=== PATIENT | male | born 1960 | race African-American/Black ===

== ENCOUNTER 2016-03-31 10:26 | Emergency (ER) | payer BC, OTHER ==
--- NOTE | 2016-03-31 10:41 | ER Document Report ---
ED Medical Screen (RME) - General Stated Complaint: HEADACHE AND DIZZY Notes: 56 [facility]. + hx/o HTN, DM, A fib. pt has taken meds as prescribed. reports his avg blood pressure runs 170's/90' s. c/o dull frontal headache with dizziness. TRAVEL OUTSIDE OF THE [place] IN LAST 30 DAYS: No - Related Data Allergies/Adverse Reactions: No Known Allergies Allergy (Verified 06/12/15 15:38) Past Medical History - Past Medical History Cardiac Medical History: Reports: Hx Atrial Fibrillation, Hx Coronary Artery Disease, Hx Hypercholesterolemia, Hx Hypertension Pulmonary Medical History: Neurological Medical History: Endocrine Medical History: Reports: Hx Diabetes Mellitus Type 2 Renal/ Medical History: Malignancy Medical History: Reports Hx Renal (Kidney) Cancer GI Medical History: Musculoskeltal Medical History: Psychiatric Medical History: Infectious Medical History: Past Surgical History: Reports: Hx Abdominal Surgery, Hx Cardiac Catheterization , Hx Kidney (Renal Surgery) - left nephrectomy, kidney CA - Immunizations Hx Diphtheria, Pertussis, Tetanus Vaccination: Yes Physical Exam - Vital signs Vitals: Temp Pulse Resp BP Pulse Ox 98.0 F 86 20 193/97 H 97 03/31/16 10:36 03/31/16 10:36 03/31/16 10:36 03/31/16 10:36 03/31/16 10:36 Course - Vital Signs Vital signs: Temp Pulse Resp BP Pulse Ox 98.0 F 86 20 193/97 H 97 03/31/16 10:36 03/31/16 10:36 03/31/16 10:36 03/31/16 10:36 03/31/16 10:36
[2016-03-31 11:05] LABS: ABSOLUTE EOSINOPHILS # (AUTO) 0.2 10^3/uL (0.0-0.6); ABSOLUTE LYMPHOCYTES (AUTO) 1.9 10^3/uL (0.5-4.7); ABSOLUTE MONOCYTES (AUTO) 0.6 10^3/uL (0.1-1.4); ABSOLUTE NEUT (AUTO) 5.8 10^3/uL (1.7-8.2); BASOPHILS % (AUTO) 0.3 % (0-2); EOSINOPHILS % (AUTO) 2.7 % (0-6); HEMATOCRIT 32.6 % (37.9-51.0); HGB HCT DIFFERENCE 0.4; MEAN CORPUSCULAR HEMOGLOBIN 26.9 pg (27.0-33.4); MEAN CORPUSCULAR HGB CONC 33.7 g/dL (32.0-36.0); MEAN CORPUSCULAR VOLUME 80 fl (80-97); MONOCYTES % (AUTO) 7.5 % (3-13); RED BLOOD COUNT 4.08 10^6/uL (4.35-5.55); SEGMENTED NEUTROPHILS % (AUTO) 67.5 % (42-78); WHITE BLOOD COUNT 8.7 10^3/uL (4.0-10.5)
[2016-03-31 11:12] LABS: APPEARANCE,URINE CLEAR; BILIRUBIN,URINE NEGATIVE (NEGATIVE); GLUCOSE, URINE NEGATIVE (NEGATIVE); KETONES,URINE NEGATIVE (NEGATIVE); LEUKOCYTE ESTERASE,URINE NEGATIVE (NEGATIVE); NITRITE,URINE NEGATIVE (NEGATIVE); PROTEIN,URINE 100 mg/dL (NEGATIVE); URINE SPECIFIC GRAVITY 1.009; UROBILINOGEN,URINE NEGATIVE mg/dL (<2.0)
[2016-03-31 11:38] LABS: ALANINE AMINOTRANSFERASE 35 U/L (21-72); ALBUMIN 4.3 g/dL (3.5-5.0); ALKALINE PHOSPHATASE 59 U/L (38-126); ANION GAP 13 (5-19); ASPARTATE AMINO TRANSFERASE 32 U/L (17-59); BILIRUBIN,TOTAL 0.8 mg/dL (0.2-1.3); BLOOD UREA NITROGEN 17 mg/dL (7-20); CALCIUM 9.9 mg/dL (8.4-10.2); CARBON DIOXIDE 27 mmol/L (22-30); CHLORIDE 105 mmol/L (98-107); GLUCOSE 43 mg/dL (75-110); POTASSIUM 4.2 mmol/L (3.6-5.0); SODIUM 144.9 mmol/L (137-145)
[2016-03-31] MEDS ORDERED: MECLIZINE HCL 25 MG TABLET PO ONE (12:15)
[2016-03-31] MEDS ORDERED: NORMAL SALINE 1000 ML 1,000 ML IV ONE ×2 (14:14)
--- NOTE | 2016-03-31 15:38 | ER Document Report ---
ED General - General Chief Complaint: Headache Stated Complaint: HEADACHE AND DIZZY TRAVEL OUTSIDE OF THE [place] IN LAST 30 DAYS: No - HPI Patient complains to provider of: headache dizziness Notes: Age coming in for headache dizziness. Patient states he woke up this morning with symptoms. Patient states an appointment at the [facility] at that time they found the patient's blood pressure was elevated therefore came into the ER for further evaluation. Patient states he has a history of renal issues as a partial kidney on one side due to renal cancer states headache dull this causes some mild dizziness. Patient denies any fevers chills nausea vomiting diarrhea chest pain abdominal pain. Patient states he is not taking anything for his headache. - Related Data Allergies/Adverse Reactions: No Known Allergies Allergy (Verified 03/31/16 10:37) Past Medical History - Social History Smoking Status: Never Smoker Chew tobacco use (# tins/day): No Frequency of alcohol use: None Drug Abuse: None Family History: Reviewed & Not Pertinent Patient has suicidal ideation: No Patient has homicidal ideation: No - Past Medical History Cardiac Medical History: Reports: Hx Atrial Fibrillation, Hx Coronary Artery Disease, Hx Hypercholesterolemia, Hx Hypertension Pulmonary Medical History: Neurological Medical History: Endocrine Medical History: Reports: Hx Diabetes Mellitus Type 2 Renal/ Medical History: Denies: Hx Peritoneal Dialysis Malignancy Medical History: Reports Hx Renal (Kidney) Cancer GI Medical History: Musculoskeltal Medical History: Psychiatric Medical History: Infectious Medical History: Past Surgical History: Reports: Hx Abdominal Surgery, Hx Cardiac Catheterization , Hx Kidney (Renal Surgery) - left nephrectomy, kidney CA - Immunizations Hx Diphtheria, Pertussis, Tetanus Vaccination: Yes Hx Pneumococcal Vaccination: 12/26/10 Review of Systems - Review of Systems Constitutional: No symptoms reported EENT: No symptoms reported Cardiovascular: No symptoms reported Respiratory: No symptoms reported Gastrointestinal: No symptoms reported Genitourinary: No symptoms reported Male Genitourinary: No symptoms reported Musculoskeletal: No symptoms reported Skin: No symptoms reported Hematologic/Lymphatic: No symptoms reported Neurological/Psychological: Headaches, Other - Dizziness -: Yes All other systems reviewed and negative Physical Exam - Vital signs Vitals: Temp Pulse Resp BP Pulse Ox 98.0 F 86 20 193/97 H 97 03/31/16 10:36 03/31/16 10:36 03/31/16 10:36 03/31/16 10:36 03/31/16 10:36 Interpretation: Normal - General General appearance: Appears well, Alert - HEENT Head: Normocephalic, Atraumatic Eyes: Normal Conjunctiva: Normal Cornea: Normal Eyelashes: Normal Pupils: PERRL Neck: Normal - Respiratory Respiratory status: No respiratory distress Chest status: Nontender Breath sounds: Normal Chest palpation: Normal - Cardiovascular Rhythm: Regular Heart sounds: Normal auscultation Murmur: No - Abdominal Inspection: Normal Distension: No distension Bowel sounds: Normal Tenderness: Nontender Organomegaly: No organomegaly - Back Back: Normal, Nontender - Extremities General upper extremity: Normal inspection, Nontender, Normal color, Normal ROM , Normal temperature General lower extremity: Normal inspection, Nontender, Normal color, Normal ROM , Normal temperature, Normal weight bearing. No: Alfredo's sign - Neurological Neuro grossly intact: Yes Cognition: Normal Orientation: AAOx4 Nila Coma Scale Eye Opening: Spontaneous [place] Coma Scale Verbal: Oriented [place] Coma Scale Motor: Obeys Commands Nila Coma Scale Total: 15 Speech: Normal Motor strength normal: LUE, RUE, LLE, RLE Sensory: Normal - Psychological Associated symptoms: Normal affect, Normal mood - Skin Skin Temperature: Warm Skin Moisture: Dry Skin Color: Normal Course - Re-evaluation Re-evalutation: 03/31/16 15:37 Patient coming in for evaluation of headache and dizziness. Patient was given meclizine which did improve his symptoms. Patient did undergo a head CT is patient states never had one never had a headache like this before. Head CT did show some possible myelinating white matter disease. Discussed with radiologist recommended to get an MRI for further evaluation. Pravastatin evaluated patient no other neurological deficits did discuss with patient that there is any signs of stroke or ischemia they would not be a candidate for any thrombolic therapy as that he woke up with symptoms and the common has ran out. Patient states an understanding 03/31/16 16:42 - Vital Signs Vital signs: Temp Pulse Resp BP Pulse Ox 98.2 F 86 17 164/89 H 97 03/31/16 15:09 03/31/16 10:36 03/31/16 15:09 03/31/16 15:09 03/31/16 10:36 - Laboratory Result Diagrams: 03/31/16 10:49 03/31/16 10:49 Laboratory results interpreted by me: 0203/31/16 03/31/16 10:49 10:49 10:49 RBC 4.08 L Hgb 11.0 L Hct 32.6 L MCH 26.9 L RDW 16.0 H PT Creatinine 1.40 H Est GFR (Non-Af Amer) 52 L Glucose 43 L Urine Protein 100 H 03/31/16 10:49 RBC Hgb Hct MCH RDW PT 18.5 H Creatinine Est GFR (Non-Af Amer) Glucose Urine Protein Discharge - Discharge Clinical Impression: Headache Qualifiers: Headache type: unspecified Headache chronicity pattern: unspecified pattern Intractability: not intractable Qualified Code(s): R51 - Headache Hypertension Qualifiers: Hypertension type: essential hypertension Qualified Code(s): I10 - Essential ( primary) hypertension Condition: Good Disposition: HOME, SELF-CARE Instructions: Headache ([facility]) Additional Instructions: Please follow-up with your primary care physician for further evaluation of your blood pressure. Your head CT today shows some signs of white matter disease however the MRI confirm that this is chronic white matter disease more likely due to changes to the brain from having high blood pressure every years. We see no signs of stroke mass bleeding in the head or any other significant etiologies are pathology. Please take medication as prescribed for your headache. Please be sure she follow[facility]. Prescriptions: Butalb/Acetaminophen/Caffeine [Fioricet (50-325-40 mg) Tablet] 1 tab PO Q4HP PRN #30 tab PRN Reason: Forms: Elevated Blood Pressure
[2016-03-31 15:52] LABS: PROTHROMBIN TIME 18.5 SEC (11.4-15.4)
[2016-03-31 17:22] VITALS: BP 164/93
== END 2016-03-31 17:30 | disposition home or self-care (01) ==
LOC: ER 10:26
DX: R51 Headache (principal); R42 Dizziness and giddiness; I48.91 Unspecified atrial fibrillation; I25.10 Atherosclerotic heart disease of native coronary artery without angina pectoris; E78.00 Pure hypercholesterolemia, unspecified; I10 Essential (primary) hypertension; E11.9 Type 2 diabetes mellitus without complications; Z85.528 Personal history of other malignant neoplasm of kidney
CPT/HCPCS: 99284; 36415; 82962; 85025; 85610; 80053; 81001; 70553; 70450; A9577; J7030

== ENCOUNTER 2016-06-04 15:10 | Emergency (ER) | payer OTHER ==
--- NOTE | 2016-06-04 16:43 | ER Document Report ---
ED Medical Screen (RME) - General Chief Complaint: Dizziness Stated Complaint: DIZZINESS, DIFFICULTY BREATHING Notes: Patient says he's been feeling dizzy and some shortness of breath over the past week. He has some chest pain a few days ago, although he is not having any today. He noted his blood sugar was 57 at home this morning. He is an oral agent dependent diabetic. He says he feels sluggish. [facility] and [facility] come here to be evaluated. Patient denies any nausea or vomiting or diarrhea. Says he has a very slight headache. Denies any fever. PMH: Hypertension, NIDDM, hypercholesterolemia, atrial fibrillation. TRAVEL OUTSIDE OF THE [place] IN LAST 30 DAYS: No - Related Data Allergies/Adverse Reactions: No Known Allergies Allergy (Verified 06/04/16 15:15) Past Medical History - Past Medical History Cardiac Medical History: Reports: Hx Atrial Fibrillation, Hx Coronary Artery Disease, Hx Hypercholesterolemia, Hx Hypertension Pulmonary Medical History: Neurological Medical History: Endocrine Medical History: Reports: Hx Diabetes Mellitus Type 2 Renal/ Medical History: Denies: Hx Peritoneal Dialysis Malignancy Medical History: Reports Hx Renal (Kidney) Cancer GI Medical History: Musculoskeltal Medical History: Psychiatric Medical History: Infectious Medical History: Past Surgical History: Reports: Hx Abdominal Surgery, Hx Cardiac Catheterization , Hx Kidney (Renal Surgery) - left nephrectomy, kidney CA - Immunizations Hx Diphtheria, Pertussis, Tetanus Vaccination: Yes Physical Exam - Vital signs Vitals: Temp Pulse Resp BP Pulse Ox 98.5 F 59 L 16 138/64 H 97 06/04/16 15:16 06/04/16 15:16 06/04/16 15:16 06/04/16 15:16 06/04/16 15:16 Course - Vital Signs Vital signs: Temp Pulse Resp BP Pulse Ox 98.5 F 59 L 16 138/64 H 97 06/04/16 15:16 06/04/16 15:16 06/04/16 15:16 06/04/16 15:16 06/04/16 15:16
[2016-06-04 16:56] LABS: ABSOLUTE EOSINOPHILS # (AUTO) 0.3 10^3/uL (0.0-0.6); ABSOLUTE LYMPHOCYTES (AUTO) 1.6 10^3/uL (0.5-4.7); ABSOLUTE MONOCYTES (AUTO) 0.6 10^3/uL (0.1-1.4); ABSOLUTE NEUT (AUTO) 6.7 10^3/uL (1.7-8.2); BASOPHILS % (AUTO) 0.3 % (0-2); EOSINOPHILS % (AUTO) 2.8 % (0-6); HEMATOCRIT 32.1 % (37.9-51.0); HEMOGLOBIN 10.7 g/dL (13.5-17.0); LYMPHOCYTES % (AUTO) 17.9 % (13-45); MEAN CORPUSCULAR HEMOGLOBIN 26.6 pg (27.0-33.4); MEAN CORPUSCULAR HGB CONC 33.5 g/dL (32.0-36.0); MEAN CORPUSCULAR VOLUME 79 fl (80-97); MONOCYTES % (AUTO) 6.2 % (3-13); RED BLOOD COUNT 4.04 10^6/uL (4.35-5.55); RED CELL DISTRIBUTION WIDTH 16.5 % (11.5-14.0); SEGMENTED NEUTROPHILS % (AUTO) 72.8 % (42-78); WHITE BLOOD COUNT 9.2 10^3/uL (4.0-10.5)
[2016-06-04 17:21] LABS: CREATINE KINASE MB 0.49 ng/mL (<4.55)
[2016-06-04 17:23] LABS: TROPONIN I < 0.012 ng/mL
[2016-06-04 17:25] LABS: ALANINE AMINOTRANSFERASE 65 U/L (21-72); ALBUMIN 4.2 g/dL (3.5-5.0); ALKALINE PHOSPHATASE 47 U/L (38-126); ASPARTATE AMINO TRANSFERASE 28 U/L (17-59); BILIRUBIN,DIRECT 0.2 mg/dL (0.0-0.4); BILIRUBIN,TOTAL 0.5 mg/dL (0.2-1.3); BLOOD UREA NITROGEN 21 mg/dL (7-20); CALCIUM 9.5 mg/dL (8.4-10.2); CARBON DIOXIDE 27 mmol/L (22-30); CHLORIDE 105 mmol/L (98-107); CREATININE RESULT 1.62 mg/dL (0.52-1.25); GLUCOSE 214 mg/dL (75-110); POTASSIUM 4.3 mmol/L (3.6-5.0)
[2016-06-04 17:45] LABS: APPEARANCE,URINE SLIGHTLY-CLOUDY; BILIRUBIN,URINE NEGATIVE (NEGATIVE); GLUCOSE, URINE NEGATIVE (NEGATIVE); KETONES,URINE NEGATIVE (NEGATIVE); LEUKOCYTE ESTERASE,URINE NEGATIVE (NEGATIVE); NITRITE,URINE NEGATIVE (NEGATIVE); PROTEIN,URINE 100 mg/dL (NEGATIVE)
[2016-06-04 17:46] LABS: ANION GAP 13 (5-19); SODIUM 144.9 mmol/L (137-145)
--- NOTE | 2016-06-04 18:54 | ER Document Report ---
ED General - General Chief Complaint: Dizziness Stated Complaint: DIZZINESS, DIFFICULTY BREATHING Notes: Patient is a 56-year-old male past medical history of hypertension, hyperlipidemia, [id number] diabetes and a prior history of atrial fibrillation who presents with 2 weeks of intermittent shortness of breath, lightheadedness, and intermittent chest pain. He denies any of these symptoms at the time my evaluation. He was seen in the [facility] today for the same started to come to the emergency department for further evaluation. Patient states he's had similar symptoms in the past that have been evaluated both at stress test and a cardiac catheterization approximately one year ago. These tests were noted to be normal. He states his been taking all medications as directed. Feels that symptoms are often associated when his glucose as noted below. He has not noted that it seems to improve or worsen the symptoms and that when they are present they do resolve spontaneously after approximately 30 seconds to 1 minute. Denies any focal weakness or numbness. Although in triage he did complain of a mild, dull, constant headache in association with his initial presentation he denies this complaint to me. A CT of the head was obtained in triage. TRAVEL OUTSIDE OF THE [place] IN LAST 30 DAYS: No - Related Data Allergies/Adverse Reactions: No Known Allergies Allergy (Verified 06/04/16 15:15) Past Medical History - General Information source: Patient - Social History Smoking Status: Never Smoker Frequency of alcohol use: None Drug Abuse: None Lives with: Spouse/Significant other Family History: Reviewed & Not Pertinent Patient has suicidal ideation: No Patient has homicidal ideation: No - Past Medical History Cardiac Medical History: Reports: Hx Atrial Fibrillation, Hx Coronary Artery Disease, Hx Hypercholesterolemia, Hx Hypertension Pulmonary Medical History: Neurological Medical History: Endocrine Medical History: Reports: Hx Diabetes Mellitus Type 2 Renal/ Medical History: Denies: Hx Peritoneal Dialysis Malignancy Medical History: Reports Hx Renal (Kidney) Cancer GI Medical History: Musculoskeltal Medical History: Psychiatric Medical History: Infectious Medical History: Past Surgical History: Reports: Hx Abdominal Surgery, Hx Cardiac Catheterization , Hx Kidney (Renal Surgery) - left nephrectomy, kidney CA - Immunizations Hx Diphtheria, Pertussis, Tetanus Vaccination: Yes Hx Pneumococcal Vaccination: 12/26/10 Review of Systems - Review of Systems Notes: Constitutional: Negative for fever. HENT: Negative for sore throat. Eyes: Negative for visual changes. Cardiovascular: Negative for chest pain. Respiratory: Positive for shortness of breath. Gastrointestinal: Negative for abdominal pain, vomiting or diarrhea. Genitourinary: Negative for dysuria. Musculoskeletal: Negative for back pain. Skin: Negative for rash. Neurological: Negative for headaches, weakness or numbness. 10 point ROS negative except as marked above and in HPI. Physical Exam - Vital signs Vitals: Temp Pulse Resp BP Pulse Ox 98.5 F 59 L 16 138/64 H 97 06/04/16 15:16 06/04/16 15:16 06/04/16 15:16 06/04/16 15:16 06/04/16 15:16 Interpretation: Normal Notes: PHYSICAL EXAMINATION: GENERAL: Well-appearing, well-nourished and in no acute distress. HEAD: Atraumatic, normocephalic. EYES: Pupils equal round and reactive to light, extraocular movements intact, sclera anicteric, conjunctiva are normal. ENT: nares patent, oropharynx clear without exudates. Moist mucous membranes. NECK: Normal range of motion, supple without lymphadenopathy LUNGS: Breath sounds clear to auscultation bilaterally and equal. No wheezes rales or rhonchi. HEART: Regular rate and rhythm without murmurs ABDOMEN: Soft, nontender, normoactive bowel sounds. No guarding, no rebound. No masses appreciated. EXTREMITIES: Normal range of motion, no pitting or edema. No cyanosis. NEUROLOGICAL: Face symmetric. Tongue protrudes midline. Extraocular motions intact. Pupils are 2 mm and equally reactive. Normal speech, normal gait. 5 out of 5 strength in both the distal and proximal upper and lower extremities bilaterally. Sensation is grossly intact throughout. Finger to nose testing normal. Pronator drift normal. PSYCH: Normal mood, normal affect. SKIN: Warm, Dry, normal turgor, no rashes or lesions noted. Course - Re-evaluation Re-evalutation: 06/04/16 18:50 Patient presents with intermittent breath and lightheadedness for the past 2 weeks unchanged today. He states it is also intermittently had some associated chest discomfort with these episodes. At the time of my evaluation patient denies any symptoms or complaints. Evaluation in triage including a CT of the head, EKG, and laboratories are unremarkable and unchanged from prior. Initial troponin is unremarkable and a repeat will be obtained. PrLow clinical suspicion for ACS given clinical history, exam, EKG without ST elevations or depressions, and negative initial troponin. Patient does have T wave inversions in the lateral leads which are unchanged from prior. PE also seems unlikely given clinical history, absence of tachycardia or dyspnea. Wells score is 0. CXR without evidence of pneumothorax or pneumonia. No widened mediastinum. Aortic dissection also seems unlikely given history, symmetric pulses, CXR, and vitals. Anticipate that the repeat troponin will remain negative. I have offered hospitalization for inpatient stress testing the patient versus close outpatient follow-up with his take off worker for repeat outpatient stress test within the next 3 days with consideration of elective cardiac catheterization as his symptoms are somewhat concerning for possible anginal events. Patient is elected to follow closely as an outpatient.At this time will discharge with return precautions and follow-up recommendations. Verbal discharge instructions given a the bedside and opportunity for questions given. Medication warnings reviewed. Patient is in agreement with this plan and has verbalized understanding of return precautions and the need for primary care follow-up in the next 24-72 hours. - Vital Signs Vital signs: Temp Pulse Resp BP Pulse Ox 98.5 F 65 16 171/85 H 97 06/04/16 15:16 06/04/16 20:46 06/04/16 20:46 06/04/16 20:46 06/04/16 20:46 - Laboratory Result Diagrams: 06/04/16 16:40 06/04/16 16:40 Laboratory results interpreted by me: 06/04/16 06/04/16 06/04/16 16:40 16:40 16:40 RBC 4.04 L Hgb 10.7 L Hct 32.1 L MCV 79 L MCH 26.6 L RDW 16.5 H BUN 21 H Creatinine 1.62 H Est GFR ( Amer) 53 L Est GFR (Non-Af Amer) 44 L Glucose 214 H Urine Protein 100 H Urine Urobilinogen 2.0 H Urine Ascorbic Acid 40 H - Diagnostic Test Radiology reviewed: Image reviewed, Reports reviewed Radiology results interpreted by me: 06/04/16 18:53 Chest x-ray: No widened mediastinum or pneumothorax - EKG Interpretation by Me Additional EKG results interpreted by me: 06/04/16 18:53 Normal sinus rhythm. Rate 65. No ST elevations or depressions. QTC is 412. Discharge - Discharge Clinical Impression: Dizziness Hypertension Qualifiers: Hypertension type: essential hypertension Qualified Code(s): I10 - Essential ( primary) hypertension Condition: Good Disposition: HOME, SELF-CARE Additional Instructions: Please follow-up with your outpatient take off worker the next several days for consideration of a stress test or cardiac catheterization. Return if you develop recurrent chest pain, vomiting, sweating, shortness of breath, or any other symptoms that are worrisome to you. Your evaluation here today as normal but you do require further workup for the cause of your symptoms.
[2016-06-04 20:46] VITALS: BP 171/85
--- NOTE | 2016-06-04 22:32 | EKG REPORT ---
SEVERITY:- ABNORMAL ECG - SINUS RHYTHM MULTIPLE ATRIAL PREMATURE COMPLEXES NONSPECIFIC T ABNORMALITIES, LATERAL LEADS : Confirmed by: Divine Junior MD 04-Jun-2016 22:30:24
== END 2016-06-04 20:46 | disposition home or self-care (01) ==
LOC: ER 15:10
DX: R42 Dizziness and giddiness (principal); I10 Essential (primary) hypertension; R06.00 Dyspnea, unspecified; E78.5 Hyperlipidemia, unspecified; I48.91 Unspecified atrial fibrillation; E11.9 Type 2 diabetes mellitus without complications; Z85.528 Personal history of other malignant neoplasm of kidney; Z90.5 Acquired absence of kidney
CPT/HCPCS: 36415; 70450; 71020; 80053; 81001; 82553; 84484; 85025; 93005; 93010; 99285

== ENCOUNTER 2016-10-13 16:48 | Emergency (ER) | payer OTHER ==
[2016-10-13] MEDS ORDERED: NORMAL SALINE 1000 ML 1,000 ML IV PRN (17:02)
--- NOTE | 2016-10-13 17:05 | ER Document Report ---
ED Medical Screen (RME) - General Chief Complaint: High Blood Sugar Stated Complaint: LIGHTHEADED,ELEVATED SUGAR Time Seen by Provider: 10/13/16 16:59 Mode of Arrival: Ambulatory Information source: Patient TRAVEL OUTSIDE OF THE [place] IN LAST 30 DAYS: No - HPI Patient complains to provider of: Elevated blood sugar Onset: Just prior to arrival Notes: 10/13/16 17:04 Patient is a 56-year-old male with a history of type II but diabetes who presents to the emergency room complaining of elevated blood sugar with a high reading at home, he was recently switched to insulin from metformin approximately 1 week ago, denies any concerning symptoms at this time - Related Data Allergies/Adverse Reactions: No Known Allergies Allergy (Verified 10/13/16 16:57) Past Medical History - Past Medical History Cardiac Medical History: Reports: Hx Atrial Fibrillation, Hx Coronary Artery Disease, Hx Hypercholesterolemia, Hx Hypertension Pulmonary Medical History: Neurological Medical History: Endocrine Medical History: Reports: Hx Diabetes Mellitus Type 2 Renal/ Medical History: Denies: Hx Peritoneal Dialysis Malignancy Medical History: Reports Hx Renal (Kidney) Cancer GI Medical History: Musculoskeltal Medical History: Psychiatric Medical History: Infectious Medical History: Past Surgical History: Reports: Hx Abdominal Surgery, Hx Cardiac Catheterization , Hx Kidney (Renal Surgery) - left nephrectomy, kidney CA - Immunizations Hx Diphtheria, Pertussis, Tetanus Vaccination: Yes Physical Exam - Vital signs Vitals: Temp Pulse Resp BP Pulse Ox 99.1 F 66 18 162/82 H 96 10/13/16 16:50 10/13/16 16:50 10/13/16 16:50 10/13/16 16:50 10/13/16 16:50 Course - Vital Signs Vital signs: Temp Pulse Resp BP Pulse Ox 99.1 F 66 18 162/82 H 96 10/13/16 16:50 10/13/16 16:50 10/13/16 16:50 10/13/16 16:50 10/13/16 16:50
--- NOTE | 2016-10-13 18:21 | ER Document Report ---
ED Blood Sugar Problem - General Chief Complaint: High Blood Sugar Stated Complaint: LIGHTHEADED,ELEVATED SUGAR Time Seen by Provider: 10/13/16 16:59 Mode of Arrival: Ambulatory Notes: Patient says his blood sugars been running high. He has been on metformin for about 5 or 6 years until about a week ago when it was decided that he needed to be on insulin. He was started on Lantus 10 units at nighttime a couple of weeks ago, but no oral agent and no sliding scale insulin during the day. His Lantus has been increased by 2 units every few days and is now up to 22 units at bedtime. His blood sugars to continue to run high, mostly in the 300s. Says he feels weak and thirsty. Denies any nausea or vomiting or diarrhea. No cough or cold or chest congestion. No fevers. TRAVEL OUTSIDE OF THE [place] IN LAST 30 DAYS: No - Related Data Allergies/Adverse Reactions: No Known Allergies Allergy (Verified 10/13/16 16:57) Past Medical History - General Information source: Patient - Social History Smoking Status: Former Smoker Chew tobacco use (# tins/day): No Frequency of alcohol use: None Drug Abuse: None Family History: Reviewed & Not Pertinent - Past Medical History Cardiac Medical History: Reports: Hx Atrial Fibrillation - Sounds like patient had ablation therapy 2 years ago, Hx Coronary Artery Disease, Hx Hypercholesterolemia, Hx Hypertension Pulmonary Medical History: Neurological Medical History: Endocrine Medical History: Reports: Hx Diabetes Mellitus Type 2 Renal/ Medical History: Reports: Hx Benign Prostatic Hyperplasia Malignancy Medical History: Reports Hx Renal (Kidney) Cancer - Surgery removing most of 1 of his kidneys. GI Medical History: Musculoskeltal Medical History: Psychiatric Medical History: Infectious Medical History: Past Surgical History: Reports: Hx Abdominal Surgery, Hx Cardiac Catheterization , Hx Kidney (Renal Surgery) - left nephrectomy, kidney CA - Immunizations Hx Diphtheria, Pertussis, Tetanus Vaccination: Yes Hx Pneumococcal Vaccination: 12/26/10 Review of Systems - Review of Systems Notes: REVIEW OF SYSTEMS: CONSTITUTIONAL : Denies fever. Feels weak at times. EENT: Denies eye, ear, nose or mouth or throat pain or other symptoms. CARDIOVASCULAR: Denies chest pain. RESPIRATORY: Denies cough, chest congestion, or shortness of breath. GASTROINTESTINAL: Denies abdominal pain or nausea, vomiting, or diarrhea. GENITOURINARY: Denies difficulty or painful urinating, urinary frequency, blood in urine. MUSCULOSKELETAL: Denies back or neck pain. Denies joint pain or swelling. SKIN: Denies rash or skin lesions. NEUROLOGICAL: Denies LOC or altered mental status. Denies headache. Denies sensory loss or motor deficits. ALL OTHER SYSTEMS REVIEWED AND NEGATIVE. Physical Exam - Vital signs Vitals: Temp Pulse Resp BP Pulse Ox 99.1 F 66 18 162/82 H 96 10/13/16 16:50 10/13/16 16:50 10/13/16 16:50 10/13/16 16:50 10/13/16 16:50 Interpretation: Hypertensive - Mild - Notes Notes: PHYSICAL EXAMINATION: GENERAL: Well-appearing, in no acute distress. Blood pressure 162/82. HEAD: Atraumatic, normocephalic. NECK: Normal range of motion, supple. LUNGS: Breath sounds clear and equal bilaterally. HEART: Regular rate and rhythm without murmurs. ABDOMEN: Soft, nontender. No guarding or rebound. BACK: No tenderness throughout entire back. EXTREMITIES: Normal range of motion without pain. NEUROLOGICAL: Normal speech, normal gait. Normal sensory, motor, and reflex exams. Awake, alert, and oriented x3. Cranial nerves normal. PSYCH: Normal mood, normal affect. SKIN: Warm, dry, no rashes. Course - Re-evaluation Re-evalutation: 10/13/16 19:51 Patient's Accu-Chek is 367 now. Patient needs to be on sliding scale during the day. [facility] I have told him he needs to talk to them about getting on more insulin. - Vital Signs Vital signs: Temp Pulse Resp BP Pulse Ox 99.1 F 66 18 162/82 H 96 10/13/16 16:50 10/13/16 16:50 10/13/16 16:50 10/13/16 16:50 10/13/16 16:50 - Laboratory Result Diagrams: 10/13/16 17:50 10/13/16 17:50 Laboratory results interpreted by me: 10/13/16 10/13/16 10/13/16 17:50 17:50 17:50 Hgb 11.6 L Hct 34.6 L MCV 79 L MCH 26.6 L RDW 15.8 H Sodium 135.7 L BUN 23 H Creatinine 1.53 H Est GFR ( Amer) 57 L Est GFR (Non-Af Amer) 47 L Glucose 519 H* Serum Osmolality 308 H Urine Protein Urine Glucose (UA) 10/13/16 17:50 Hgb Hct MCV MCH RDW Sodium BUN Creatinine Est GFR ( Amer) Est GFR (Non-Af Amer) Glucose Serum Osmolality Urine Protein 30 H Urine Glucose (UA) >=500 H Discharge - Discharge Clinical Impression: Hyperglycemia Condition: Stable Disposition: HOME, SELF-CARE Additional Instructions: HYPERGLYCEMIA (HIGH BLOOD SUGAR): You have an abnormally high blood sugar. Not all high blood sugar requires long-term treatment. High blood sugar can be due to medications, , or the stress of illness. (These cases are "borderline diabetes.") If the doctor feels your high blood sugar might resolve with time, you may not require treatment now. It's very important that you follow through, to see if the blood sugar returns to normal levels. Uncontrolled high blood sugar leads to early heart disease, strokes, nerve damage, eye damage, and kidney damage. Call the physician if there is faintness, excess sleepiness, or very rapid breathing. DIABETES: You have an abnormally high blood sugar, suspicious for diabetes. Not all high blood sugar requires long-term treatment. High blood sugar can be due to medications, , or the stress of illness. (These cases are "borderline diabetes.") If the doctor feels your high blood sugar might get better with time, you may not require treatment now. It's very important that you follow through. Uncontrolled high blood sugar leads to early heart disease, strokes, nerve damage, eye damage, and kidney damage. All diabetics should follow a diet designed to control the blood sugar. Overweight diabetics should exercise regularly and lose weight. If this is not sufficient to control the blood sugar, pills or insulin shots are necessary. Younger people who develop diabetes almost always require insulin daily. Home testing of blood sugars or urine sugar is required. Diabetic teaching is available to help you figure insulin doses and monitor the blood sugar. Call the physician if there is faintness, excess sleepiness, or very rapid breathing. If hypoglycemia (LOW blood sugar) develops, symptoms are shakiness, weakness, sweating, and confusion. In this case, you should eat or drink something with sugar at once. INSULIN: Insulin is a natural hormone that lowers blood sugar. Normal blood sugar prevents complications of diabetes. For most diabetics, insulin is the best way to treat the illness. Be sure you know how to measure the insulin correctly. Insulin is measured in "units." There are three types of insulin: N (NPH or long acting), R (regular or short acting), and L (Lente or very long acting). Be sure you are using the right amount of each type. Insulin must be injected into the fat. You can use the abdomen, upper arms , and thighs. Select a different injection site every time. Wipe the site with alcohol before injecting. When first starting insulin, some adjusting of the insulin dose is necessary. Keep a record of each insulin dose and time of injection, and of the blood sugar and the time you test it. Sometimes insulin can make the blood sugar too low. If you become dizzy, sweaty, shaky, or confused, you may be having a hypoglycemic episode. Immediately use juice or some other sweet food. Call the doctor if the symptoms don't go away. Keep your appointment to be [facility]. It appears that you are going to need to be on insulin more often than just a bedtime dose. Take your planned 24 units tonight and keep your appointment at the [facility] tomorrow. FOLLOW-UP CARE: If you have been referred to a physician for follow-up care, call the physician s office for an appointment as you were instructed or within the next two days. If you experience worsening or a significant change in your symptoms, notify the physician immediately or return to the Emergency Department at any time for re-evaluation. Forms: Return to Work
[2016-10-13 18:27] LABS: ABSOLUTE EOSINOPHILS # (AUTO) 0.1 10^3/uL (0.0-0.6); ABSOLUTE LYMPHOCYTES (AUTO) 1.7 10^3/uL (0.5-4.7); ABSOLUTE MONOCYTES (AUTO) 0.5 10^3/uL (0.1-1.4); BASOPHILS % (AUTO) 0.5 % (0-2); EOSINOPHILS % (AUTO) 1.8 % (0-6); HEMATOCRIT 34.6 % (37.9-51.0); HEMOGLOBIN 11.6 g/dL (13.5-17.0); HGB HCT DIFFERENCE 0.2; LYMPHOCYTES % (AUTO) 23.3 % (13-45); MEAN CORPUSCULAR HEMOGLOBIN 26.6 pg (27.0-33.4); MEAN CORPUSCULAR HGB CONC 33.6 g/dL (32.0-36.0); MEAN CORPUSCULAR VOLUME 79 fl (80-97); MONOCYTES % (AUTO) 6.7 % (3-13); RED BLOOD COUNT 4.36 10^6/uL (4.35-5.55); RED CELL DISTRIBUTION WIDTH 15.8 % (11.5-14.0); SEGMENTED NEUTROPHILS % (AUTO) 67.7 % (42-78); VENOUS BLOOD BASE EXCESS -0.5 mmol/L; VENOUS BLOOD HCO3 24.9 mmol/L (20-32); VENOUS BLOOD PCO2 43.4 mmHg (35-63); VENOUS BLOOD PH 7.38 (7.30-7.42); WHITE BLOOD COUNT 7.4 10^3/uL (4.0-10.5)
[2016-10-13 18:30] LABS: APPEARANCE,URINE CLEAR; BILIRUBIN,URINE NEGATIVE (NEGATIVE); GLUCOSE, URINE >=500 mg/dL (NEGATIVE); KETONES,URINE NEGATIVE (NEGATIVE); LEUKOCYTE ESTERASE,URINE NEGATIVE (NEGATIVE); NITRITE,URINE NEGATIVE (NEGATIVE); PROTEIN,URINE 30 mg/dL (NEGATIVE); URINE SPECIFIC GRAVITY 1.025; UROBILINOGEN,URINE NEGATIVE mg/dL (<2.0)
[2016-10-13] MEDS ORDERED: NORMAL SALINE 1000 ML 1,000 ML IV ONE (18:36)
[2016-10-13 18:49] LABS: ALANINE AMINOTRANSFERASE 39 U/L (21-72); ALKALINE PHOSPHATASE 79 U/L (38-126); ANION GAP 10 (5-19); ASPARTATE AMINO TRANSFERASE 20 U/L (17-59); BILIRUBIN,DIRECT 0.4 mg/dL (0.0-0.4); BILIRUBIN,TOTAL 0.6 mg/dL (0.2-1.3); BLOOD UREA NITROGEN 23 mg/dL (7-20); CALCIUM 9.4 mg/dL (8.4-10.2); CARBON DIOXIDE 25 mmol/L (22-30); CHLORIDE 101 mmol/L (98-107); CREATININE RESULT 1.53 mg/dL (0.52-1.25); POTASSIUM 4.7 mmol/L (3.6-5.0); SODIUM 135.7 mmol/L (137-145); TOTAL PROTEIN 7.6 g/dL (6.3-8.2)
[2016-10-13 18:57] LABS: GLUCOSE 519 mg/dL (75-110)
[2016-10-13] MEDS ORDERED: INSULIN LISPRO 100 UNIT/ML 3 ML VIAL SUBCUT ONE (18:59)
[2016-10-13 20:32] VITALS: BP 155/83
== END 2016-10-13 20:29 | disposition home or self-care (01) ==
LOC: ER 16:48
DX: E11.65 Type 2 diabetes mellitus with hyperglycemia (principal); Z79.4 Long term (current) use of insulin
CPT/HCPCS: 99283; 96360; 36415; 82962; 83930; 85025; 80053; 81001; 82803; J1815; J7030

== ENCOUNTER 2017-01-10 04:09 | Emergency (ER) | payer OTHER ==
--- NOTE | 2017-01-10 05:04 | ER Document Report ---
ED General - General Chief Complaint: Blood Pressure Problem Stated Complaint: BLOOD PRESSURE PROBLEM Time Seen by Provider: 01/10/17 04:50 Mode of Arrival: Ambulatory Information source: Patient Notes: Patient states that he woke up at 3 AM this morning with left arm numbness. Patient states the numbness has almost completely resolved although he does still have tingling to the tips of his fingers of his left hand. Patient denies any chest pain or shortness of breath. Patient denies any cough, nausea , vomiting or diarrhea. Patient states that he has had episodes of left upper extremity numbness off and on about every 3 months. Patient does report some mild headache pain that he developed after waking up. Patient states he lives alone and because of this he likes to make sure that he is okay. TRAVEL OUTSIDE OF THE [place] IN LAST 30 DAYS: No - HPI Onset: This morning Onset/Duration: Sudden, Better Quality of pain: Achy Pain Level: 2 Associated symptoms: Headache, Other - Left arm numbness. denies: Chest pain, Nonproductive cough, Productive cough, Diarrhea, Fever, Nausea, Vomiting, Shortness of breath Exacerbated by: Denies Relieved by: Denies Similar symptoms previously: Yes Recently seen / treated by doctor: No - Related Data Allergies/Adverse Reactions: No Known Allergies Allergy (Verified 10/13/16 16:57) Past Medical History - General Information source: Patient - Social History Smoking Status: Never Smoker Frequency of alcohol use: None Drug Abuse: None Occupation: None Lives with: Alone Family History: Reviewed & Not Pertinent Patient has suicidal ideation: No Patient has homicidal ideation: No - Past Medical History Cardiac Medical History: Reports: Hx Atrial Fibrillation - Sounds like patient had ablation therapy 2 years ago, Hx Coronary Artery Disease, Hx Hypercholesterolemia, Hx Hypertension Pulmonary Medical History: Neurological Medical History: Endocrine Medical History: Reports: Hx Diabetes Mellitus Type 2 Renal/ Medical History: Reports: Hx Benign Prostatic Hyperplasia. Denies: Hx Peritoneal Dialysis Malignancy Medical History: Reports Hx Renal (Kidney) Cancer - Surgery removing most of 1 of his kidneys. GI Medical History: Musculoskeltal Medical History: Psychiatric Medical History: Infectious Medical History: Past Surgical History: Reports: Hx Abdominal Surgery, Hx Cardiac Catheterization , Hx Kidney (Renal Surgery) - left nephrectomy, kidney CA - Immunizations Hx Diphtheria, Pertussis, Tetanus Vaccination: Yes Hx Pneumococcal Vaccination: 10/29/11 Review of Systems - Review of Systems Constitutional: No symptoms reported. denies: Fever, Recent illness EENT: No symptoms reported Cardiovascular: No symptoms reported. denies: Chest pain, Palpitations Respiratory: No symptoms reported. denies: Cough, Short of breath Gastrointestinal: No symptoms reported. denies: Abdominal pain, Diarrhea, Nausea, Vomiting Genitourinary: No symptoms reported Male Genitourinary: No symptoms reported Musculoskeletal: No symptoms reported. denies: Back pain Skin: No symptoms reported Hematologic/Lymphatic: No symptoms reported Neurological/Psychological: Headaches, Numbness, Tingling - fingertips of left hand Physical Exam - Vital signs Vitals: Temp Pulse Resp BP Pulse Ox 97.9 F 64 18 187/97 H 98 01/10/17 04:18 01/10/17 04:18 01/10/17 04:18 01/10/17 04:18 01/10/17 04:18 - General General appearance: Appears well, Alert In distress: None - HEENT Head: Normocephalic, Atraumatic Eyes: Normal Conjunctiva: Normal Nasal: Normal Mouth/Lips: Normal Mucous membranes: Normal Neck: Normal, Supple. No: Lymphadenopathy, Meningismus - Respiratory Respiratory status: No respiratory distress Chest status: Nontender Breath sounds: Normal. No: Rales, Rhonchi, Stridor, Wheezing Chest palpation: Normal - Cardiovascular Rhythm: Regular Heart sounds: S1 appreciated, S2 appreciated Murmur: No Pulses: Normal: Radial Normal capillary refill: Yes - Abdominal Inspection: Normal Distension: No distension Bowel sounds: Normal - Back Back: Normal, Nontender. No: CVA tenderness, Vertebra tenderness - Extremities General upper extremity: Normal inspection, Nontender, Normal ROM General lower extremity: Normal inspection, Nontender, Normal ROM - Neurological Neuro grossly intact: Yes Cognition: Normal Nila Coma Scale Eye Opening: Spontaneous Nila Coma Scale Verbal: Oriented Nila Coma Scale Motor: Obeys Commands Nila Coma Scale Total: 15 Speech: Normal Cranial nerves: Normal. No: Facial palsy, Tongue deviation Motor strength normal: LUE, RUE, LLE, RLE Additional motor exam normals: Equal air intelligence officer. No: Weakness - Psychological Associated symptoms: Normal affect, Normal mood - Skin Skin Temperature: Warm Skin Moisture: Dry Skin Color: Normal Course - Re-evaluation Re-evalutation: 01/10/17 06:45 Patient states that headache symptoms have resolved as well as his left arm numbness. Patient does complain of continued tingling to the fingertips of his left hand. Patient states that he will typically take his blood pressure medication in the morning and has not yet had it today. Patient states that he does have a neurology appointment tomorrow to follow-up the numbness sensation that he has been having off and on his left arm. Patient continues to deny any chest pain, shortness of breath or dizziness. Discussed patient's renal function tests with him. Patient does have a known history of renal insufficiency and is followed by Dr. Mitchell. Discussed patient's chest x-ray finding with him. Reviewed patient's previous chest x-ray, no significant change as compared to his previous. Discussed worsening symptoms that patient should return to me before. Patient verbalized understanding and agrees with plan of care. Consulted with Dr. Dorado regarding patient presentation and diagnostic test results. Agrees with discharge plan of care. - Vital Signs Vital signs: Temp Pulse Resp BP Pulse Ox 97.9 F 64 20 174/102 H 97 01/10/17 04:18 01/10/17 04:18 01/10/17 04:40 01/10/17 04:40 01/10/17 04:40 - Laboratory Result Diagrams: 01/10/17 05:16 01/10/17 05:16 Laboratory results interpreted by me: 01/10/17 01/10/17 05:16 05:16 RBC 4.20 L Hgb 11.0 L Hct 32.3 L MCV 77 L MCH 26.1 L RDW 16.8 H Sodium 146.5 H BUN 25 H Creatinine 1.67 H Est GFR ( Amer) 52 L Est GFR (Non-Af Amer) 43 L Glucose 111 H Labs- Entire Visit 01/10/17 01/10/17 01/10/17 05:16 05:16 05:16 WBC 8.5 RBC 4.20 L Hgb 11.0 L Hct 32.3 L MCV 77 L MCH 26.1 L MCHC 34.0 RDW 16.8 H Plt Count 178 Seg Neutrophils % 65.8 Lymphocytes % 22.9 Monocytes % 8.5 Eosinophils % 2.4 Basophils % 0.4 Absolute Neutrophils 5.6 Absolute Lymphocytes 1.9 Absolute Monocytes 0.7 Absolute Eosinophils 0.2 Absolute Basophils 0.0 Sodium 146.5 H Potassium 4.0 Chloride 107 Carbon Dioxide 27 Anion Gap 13 BUN 25 H Creatinine 1.67 H Est GFR ( Amer) 52 L Est GFR (Non-Af Amer) 43 L Glucose 111 H Calcium 8.9 Magnesium 1.8 Total Bilirubin 0.9 Direct Bilirubin 0.3 Indirect Bilirubin Not Reportable Neonat Total Bilirubin Not Reportable AST 28 ALT 62 Alkaline Phosphatase 58 Creatine Kinase 87 CK-MB (CK-2) 0.70 Troponin I < 0.012 Total Protein 7.1 Albumin 4.0 - Diagnostic Test Radiology reviewed: Image reviewed, Reports reviewed Discharge - Discharge Clinical Impression: Paresthesia, Hx of essential hypertension Head ache Qualifiers: Headache type: unspecified Headache chronicity pattern: unspecified pattern Intractability: not intractable Qualified Code(s): R51 - Headache Condition: Stable Disposition: HOME, SELF-CARE Instructions: Headache ([facility]), Numbness or Paresthesia ([facility]) Additional Instructions: Return immediately for any new or worsening symptoms Followup with your primary care provider, call tomorrow to make a followup appointment Follow-up with neurologist tomorrow as planned. Your blood pressure was elevated today. Patient to take your blood pressure medication this morning whenever you get home. Follow-up with your hardness tester for recheck Forms: Elevated Blood Pressure Referrals: Lila MITCHELL MD [ACTIVE STAFF] - Follow up as needed [facility] [place] [Provider Group] - Follow up tomorrow
[2017-01-10 05:28] LABS: ABSOLUTE EOSINOPHILS # (AUTO) 0.2 10^3/uL (0.0-0.6); ABSOLUTE LYMPHOCYTES (AUTO) 1.9 10^3/uL (0.5-4.7); ABSOLUTE MONOCYTES (AUTO) 0.7 10^3/uL (0.1-1.4); ABSOLUTE NEUT (AUTO) 5.6 10^3/uL (1.7-8.2); BASOPHILS % (AUTO) 0.4 % (0-2); EOSINOPHILS % (AUTO) 2.4 % (0-6); HEMATOCRIT 32.3 % (37.9-51.0); HGB HCT DIFFERENCE 0.7; LYMPHOCYTES % (AUTO) 22.9 % (13-45); MEAN CORPUSCULAR HEMOGLOBIN 26.1 pg (27.0-33.4); MEAN CORPUSCULAR VOLUME 77 fl (80-97); MONOCYTES % (AUTO) 8.5 % (3-13); RED CELL DISTRIBUTION WIDTH 16.8 % (11.5-14.0); SEGMENTED NEUTROPHILS % (AUTO) 65.8 % (42-78); WHITE BLOOD COUNT 8.5 10^3/uL (4.0-10.5)
[2017-01-10 05:46] LABS: ALANINE AMINOTRANSFERASE 62 U/L (21-72); ALKALINE PHOSPHATASE 58 U/L (38-126); ANION GAP 13 (5-19); ASPARTATE AMINO TRANSFERASE 28 U/L (17-59); BILIRUBIN,DIRECT 0.3 mg/dL (0.0-0.4); BILIRUBIN,TOTAL 0.9 mg/dL (0.2-1.3); BLOOD UREA NITROGEN 25 mg/dL (7-20); CALCIUM 8.9 mg/dL (8.4-10.2); CARBON DIOXIDE 27 mmol/L (22-30); CHLORIDE 107 mmol/L (98-107); CREATINE KINASE 87 U/L (55-170); CREATININE RESULT 1.67 mg/dL (0.52-1.25); GLUCOSE 111 mg/dL (75-110); MAGNESIUM 1.8 mg/dL (1.6-2.3); SODIUM 146.5 mmol/L (137-145); TOTAL PROTEIN 7.1 g/dL (6.3-8.2)
[2017-01-10 06:07] LABS: TROPONIN I < 0.012 ng/mL
--- NOTE | 2017-01-10 06:19 | RADIOLOGY REPORT (SQ) ---
EXAM DESCRIPTION: CT HEAD WITHOUT COMPLETED DATE/TIME: 01/10/2017 6:07 am REASON FOR STUDY: LEWIS, elevated bp, L arm numbness COMPARISON: CT head 06/04/2016, 03/31/2016. TECHNIQUE: Axial images acquired through the brain without intravenous contrast. Images reviewed wi th bone, brain and subdural windows. Images stored on PACS. All CT scanners at this facility use dose modulation, iterative reconstruction, and/or weight based d osing when appropriate to reduce radiation dose to as low as reasonably achievable (ALARA). [facility]: Dose Right [facility]: CareDose [facility]: Dose Right [facility]: Teradose 4D [facility]: [employer] RADIATION DOSE: Up-to-date CT equipment and radiation dose reduction techniques were employed. CTDIv ol: 64.6 mGy. DLP: 1163 mGy-cm. mGy. LIMITATIONS: None. FINDINGS: VENTRICLES: Normal size and contour. CEREBRUM: No mass effect. No hemorrhage. No midline shift. Normal genao/white matter differentiatio n. No evidence for acute territorial infarction. CEREBELLUM: No mass effect. No hemorrhage. No alteration of density. No evidence for acute infarct ion. EXTRAAXIAL SPACES: No fluid collections. ORBITS AND GLOBE: Symmetrical contour of the globes. CALVARIUM: No depressed skull fracture. PARANASAL SINUSES: No air-fluid level. Mucous retention cysts/polyps in the left maxillary sinus. SOFT TISSUES: No hematoma. IMPRESSION: No acute intracranial hemorrhage or acute territorial infarct. EVIDENCE OF ACUTE STROKE: NO. COMMENT: Quality ID # [id number]: Final reports with documentation of one or more dose reduction techniques (e.g., Automated exposure control, adjustment of the mA and/or kV according to patient size, use of iterative reconstruction technique) TECHNICAL DOCUMENTATION: JOB ID: [id number]-[email or web address] 2010 [employer]- All Rights Reserved
--- NOTE | 2017-01-10 06:29 | RADIOLOGY REPORT (SQ) ---
EXAM DESCRIPTION: CHEST PA/LAT COMPLETED DATE/TIME: 01/10/2017 6:13 am REASON FOR STUDY: arm numbness, elevated BP COMPARISON: Chest x-ray 06/04/2016, 06/12/2015. EXAM PARAMETERS: NUMBER OF VIEWS: two views TECHNIQUE: Digital Frontal and Lateral radiographic views of the chest acquired. RADIATION DOSE: NA LIMITATIONS: none FINDINGS: LUNGS AND PLEURA: No consolidation, pneumothorax or pleural effusion. MEDIASTINUM AND HILAR STRUCTURES: No masses or contour abnormalities. HEART AND VASCULAR STRUCTURES: The heart is mildly enlarged. There is central vascular congestion. BONES: Degenerative changes in the spine. HARDWARE: None in the chest. IMPRESSION: Mild cardiomegaly and central vascular congestion. TECHNICAL DOCUMENTATION: JOB ID: [id number] 2010 [employer]- All Rights Reserved
[2017-01-10 06:50] VITALS: BP 185/99
--- NOTE | 2017-01-10 09:58 | EKG REPORT ---
SEVERITY:- BORDERLINE ECG - SINUS RHYTHM BORDERLINE T ABNORMALITIES, INFERIOR LEADS : Confirmed by: Thalia Rose 10-Jan-2017 09:57:19
== END 2017-01-10 06:56 | disposition home or self-care (01) ==
LOC: ER 04:09
DX: R51 Headache (principal); R20.0 Anesthesia of skin; R03.0 Elevated blood-pressure reading, without diagnosis of hypertension
CPT/HCPCS: 36415; 70450; 71020; 80053; 82550; 82553; 83735; 84484; 85025; 93005; 93010; 99284

== ENCOUNTER 2017-01-17 01:25 | Observation (INO) | payer OTHER ==
[2017-01-17] MEDS ORDERED: ASPIRIN 81 MG TABLET, CHEWABLE PO ONE (02:21)
[2017-01-17 02:53] LABS: ABSOLUTE EOSINOPHILS # (AUTO) 0.1 10^3/uL (0.0-0.6); ABSOLUTE LYMPHOCYTES (AUTO) 1.3 10^3/uL (0.5-4.7); ABSOLUTE MONOCYTES (AUTO) 0.6 10^3/uL (0.1-1.4); ABSOLUTE NEUT (AUTO) 7.8 10^3/uL (1.7-8.2); BASOPHILS % (AUTO) 0.4 % (0-2); EOSINOPHILS % (AUTO) 1.4 % (0-6); HEMOGLOBIN 11.1 g/dL (13.5-17.0); HGB HCT DIFFERENCE 0.3; MEAN CORPUSCULAR HEMOGLOBIN 25.7 pg (27.0-33.4); MEAN CORPUSCULAR HGB CONC 33.5 g/dL (32.0-36.0); MEAN CORPUSCULAR VOLUME 77 fl (80-97); MONOCYTES % (AUTO) 6.3 % (3-13); RED BLOOD COUNT 4.31 10^6/uL (4.35-5.55); RED CELL DISTRIBUTION WIDTH 16.9 % (11.5-14.0); SEGMENTED NEUTROPHILS % (AUTO) 78.9 % (42-78); WHITE BLOOD COUNT 9.9 10^3/uL (4.0-10.5)
[2017-01-17 03:12] LABS: ALANINE AMINOTRANSFERASE 43 U/L (21-72); ALKALINE PHOSPHATASE 54 U/L (38-126); ANION GAP 15 (5-19); ASPARTATE AMINO TRANSFERASE 25 U/L (17-59); BILIRUBIN,DIRECT 0.3 mg/dL (0.0-0.4); BILIRUBIN,TOTAL 0.9 mg/dL (0.2-1.3); BLOOD UREA NITROGEN 21 mg/dL (7-20); CALCIUM 9.1 mg/dL (8.4-10.2); CARBON DIOXIDE 23 mmol/L (22-30); CHLORIDE 107 mmol/L (98-107); CREATINE KINASE 86 U/L (55-170); CREATININE RESULT 2.09 mg/dL (0.52-1.25); GLUCOSE 190 mg/dL (75-110); MAGNESIUM 1.9 mg/dL (1.6-2.3); POTASSIUM 4.3 mmol/L (3.6-5.0); SODIUM 145.4 mmol/L (137-145)
[2017-01-17 03:23] LABS: CREATINE KINASE MB 0.62 ng/mL (<4.55)
[2017-01-17 03:27] LABS: TROPONIN I < 0.012 ng/mL
--- NOTE | 2017-01-17 03:37 | RADIOLOGY REPORT (SQ) ---
EXAM DESCRIPTION: CHEST SINGLE VIEW CLINICAL HISTORY: CP COMPARISON: 01/10/2017 FINDINGS: Single frontal view of the chest. 30 megaly. No consolidation, pneumothorax, or pleural effusion. No displaced rib fractures identified. Upper abdominal soft tissues are unremarkable. IMPRESSION: 1. No acute pulmonary process identified. Cardiomegaly.
[2017-01-17] MEDS ORDERED: NORMAL SALINE 500 ML IV ONE (05:15)
--- NOTE | 2017-01-17 05:17 | ER Document Report ---
ED General - General Chief Complaint: Shortness Of Breath Stated Complaint: BLOOD PRESSURE PROBLEMS Time Seen by Provider: 01/17/17 04:42 Notes: Patient is a 56-year-old male presents with complaint of having low blood pressure and a low heart rate and feeling short of breath and lightheaded. He does have a history of atrial fibrillation diabetes and hypertension. He is on Pradaxa. Patient says he takes Cardizem for his rate control. Is unsure if he is on anything else. He denies being on digoxin. He is also on other medications for his diabetes and high blood pressure. Denies any recent fevers or illnesses. He says the symptoms just started tonight. His blood pressure at home was in the 80s. His heart rate was in the 40s. Patient denies this ever happening before. He denies any chest pain. He has no other complaints at this time. He denies any recent changes in his medication dosages. TRAVEL OUTSIDE OF THE [place] IN LAST 30 DAYS: No - Related Data Allergies/Adverse Reactions: No Known Allergies Allergy (Verified 10/13/16 16:57) Past Medical History - Social History Smoking Status: Never Smoker Chew tobacco use (# tins/day): No Frequency of alcohol use: None Drug Abuse: None Family History: Reviewed & Not Pertinent Patient has suicidal ideation: No Patient has homicidal ideation: No - Past Medical History Cardiac Medical History: Reports: Hx Atrial Fibrillation - Sounds like patient had ablation therapy 2 years ago, Hx Coronary Artery Disease, Hx Hypercholesterolemia, Hx Hypertension Pulmonary Medical History: Neurological Medical History: Endocrine Medical History: Reports: Hx Diabetes Mellitus Type 2 Renal/ Medical History: Reports: Hx Benign Prostatic Hyperplasia. Denies: Hx Peritoneal Dialysis Malignancy Medical History: Reports Hx Renal (Kidney) Cancer - Surgery removing most of 1 of his kidneys. GI Medical History: Musculoskeltal Medical History: Psychiatric Medical History: Infectious Medical History: Past Surgical History: Reports: Hx Abdominal Surgery, Hx Cardiac Catheterization , Hx Kidney (Renal Surgery) - left nephrectomy, kidney CA - Immunizations Hx Diphtheria, Pertussis, Tetanus Vaccination: Yes Hx Pneumococcal Vaccination: 12/26/10 Review of Systems - Review of Systems Notes: My Normal Review Basic REVIEW OF SYSTEMS: CONSTITUTIONAL : Denies fever, chills, or sweats. Denies recent illness. EENT: Denies eye, ear, throat, or mouth pain or symptoms. Denies nasal or sinus congestion. CARDIOVASCULAR: Low heart rate. No chest pain RESPIRATORY: Denies cough, cold, or chest congestion. Denies shortness of breath, difficulty breathing, or wheezing. GASTROINTESTINAL: Denies abdominal pain. Denies nausea, vomiting, or diarrhea. Denies constipation. Last BM: MUSCULOSKELETAL: Denies neck or back pain or joint pain or swelling. SKIN: Denies rash or skin lesions. NEUROLOGICAL: Denies altered mental status or loss of consciousness. Dizziness without syncope. Denies headache. Denies weakness or paralysis or loss of use of either side. Denies problems with gait or speech. Denies sensory or motor loss. ALL OTHER SYSTEMS REVIEWED AND NEGATIVE. Physical Exam - Vital signs Vitals: Temp Pulse Resp BP Pulse Ox 98.6 F 45 L 16 101/59 L 98 01/17/17 01:44 01/17/17 01:44 01/17/17 01:44 01/17/17 01:44 01/17/17 01:44 - Notes Notes: General Appearance: Well nourished, alert, cooperative, no acute distress, no obvious discomfort. well appearing. Vitals: reviewed, See vital signs table. Head: no swelling or tenderness to the head Eyes: PERRL, EOMI, Conjuctiva clear Mouth: No decreasd moisture Neck: Supple, no neck tenderness Lungs: No wheezing, No rales, No rhonci, No accessory muscle use, good air exchange bilaterally. Heart: Cardiac rate, Regular rythm, No murmur, no rub Abdomen: Normal BS, soft, No rigidity, No abdominal tenderness, No guarding, no rebound, no abdominal masses, no organomegaly Extremities: strength 5/5 in all extremities, good pulses in all extremities, no swelling or tenderness in the extremities, no edema. Skin: warm, dry, appropriate color, no rash Neuro: speech clear, oriented x 3, normal affect, responds appropriately to questions. Cranial nerves II through XII are intact. Distal sensation intact. Patient moves all extremities without difficulty. Upon standing patient does become dizzy. He does not pass out. Course - Re-evaluation Re-evalutation: 01/17/17 05:26 I suspect that the patient's probably converted to sinus rhythm and now the medications he is on for his A. fib are making his rate too low. This is probably why he was hypotensive earlier and also feeling very dizzy. Currently his blood pressure is okay however he still very dizzy when he stands up and his heart rate is still in the 40s and low 50s. I feel it is appropriate to admit the patient for telemetry monitoring during to adjust his medications and allow his heart rate to come back to a safe normal range. I did speak with Dr. Deshpande who agrees to admit the patient. Dictation of this chart was performed using voice recognition software; therefore, there may be some unintended grammatical errors. - Vital Signs Vital signs: Temp Pulse Resp BP Pulse Ox 98.6 F 45 L 17 114/80 98 01/17/17 01:44 01/17/17 01:44 01/17/17 04:23 01/17/17 04:23 01/17/17 01:44 - Laboratory Result Diagrams: 01/17/17 02:34 01/17/17 02:34 Laboratory results interpreted by me: 01/17/17 01/17/17 02:34 02:34 RBC 4.31 L Hgb 11.1 L Hct 33.0 L MCV 77 L MCH 25.7 L RDW 16.9 H Seg Neutrophils % 78.9 H Sodium 145.4 H BUN 21 H Creatinine 2.09 H Est GFR ( Amer) 40 L Est GFR (Non-Af Amer) 33 L Glucose 190 H - EKG Interpretation by Me Additional EKG results interpreted by me: 01/17/17 05:23 EKG is reviewed and interpreted by me. EKG shows sinus bradycardia with a rate of [address] segment elevation or depression. No ischemic T-wave inversions. MD interval, QRS duration, QTc intervals are within normal range. Old EKG for comparison is from January 10, 2017. Discharge - Discharge Clinical Impression: Sinus bradycardia, Dizziness, Renal insufficiency Condition: Stable Disposition: ADMITTED OBSERVATION Admitting Provider: Hospitalist Unit Admitted: Telemetry
[2017-01-17] MEDS ORDERED: IPRATROPIUM/ALBUTEROL 0.5-2.5 MG/3 ML AMPUL NEB PRN (06:08)
[2017-01-17] MEDS ORDERED: ACETAMINOPHEN 325 MG TABLET PO PRN (06:08)
[2017-01-17] MEDS ORDERED: MAGNESIUM HYDROXIDE SUSP 30 ML UDCUP PO PRN (06:08)
--- NOTE | 2017-01-17 06:23 | PDOC H&P ---
History of Present Illness Admission Date/PCP: 01/17/17 05:27 Patient complains of: Lightheaded, low heart rate History of Present Illness: SHARAN SMART is a 56 year old male with a past medical history of diabetes , hypertension, BPH and A. fib on Pradaxa and diltiazem. He presents with 12 hours of generalized weakness, hypotension and heart rate in the 50s. He denies recent viral prodrome or chest pain he admits he may have accidentally taken an additional dose of diltiazem. In the emergency room is found to have a heart rate in the 40s, systolic blood pressure of 80 and acute renal failure. He receives fluid resuscitation with marked improvement symptoms of blood pressure. He is now in sinus bradycardia at 54 and referred to the hospitalist for admission. Past Medical History Cardiac Medical History: Reports: Atrial Fibrillation - Sounds like patient had ablation therapy 2 years ago, Coronary Artery Disease, Hyperlipidema, Hypertension Pulmonary Medical History: Neurological Medical History: Endocrine Medical History: Reports: Diabetes Mellitus Type 2 Renal/ Medical History: Malignancy Medical History: Reports: Renal (Kidney) Cancer - Surgery removing most of 1 of his kidneys. GI Medical History: Musculoskeltal Medical History: Psychiatric Medical History: Hematology: Denies: Anemia, Hemophilia, Sickle Cell Disease Past Surgical History Past Surgical History: Reports: Cardiac Catheterization Social History Information Source: Patient Smoking Status: Never Smoker Frequency of Alcohol Use: None Hx Recreational Drug Use: No Hx Prescription Drug Abuse: No - Advance Directive Resuscitation Status: Full Code Family History Family History: CAD Parental Family History Reviewed: Yes Children Family History Reviewed: Yes Sibling(s) Family History Reviewed.: Yes Medication/Allergy Home Medications: Atorvastatin Calcium 20 mg PO DAILY 12/25/14 Metformin HCl [Glucophage] 1,000 mg PO BID 12/25/14 Warfarin Sodium [Coumadin 7.5 mg Tablet] 7.5 mg PO QHS 12/25/14 Diltiazem HCl [Cardizem Cd 240 mg Capsule.cr] 240 mg PO DAILY #30 capsule.cr Finasteride [Proscar 5 mg Tablet] 5 mg PO DAILY #0 tablet 12/27/14 Metoprolol Succinate [Toprol Xl 50 mg Tab.sr] 75 mg PO Q12 #0 tab.sr.24h Simvastatin [Zocor 40 mg Tablet] 20 mg PO QHS #0 tablet 12/27/14 Tamsulosin HCl [Flomax 0.4 mg Cap.sr] 0.4 mg PO DAILY #0 cap.sr.24h 12/27/14 Lansoprazole [Prevacid 30 mg Odt Tablet] 30 mg PO DAILY #30 tab.rap.dr 06/13/15 Losartan Potassium [Cozaar 25 mg Tablet] 25 mg PO DAILY #30 tablet 06/13/15 Butalb/Acetaminophen/Caffeine [Fioricet (50-325-40 mg) Tablet] 1 tab PO Q4HP PRN #30 tab 03/31/16 Allergies/Adverse Reactions: No Known Allergies Allergy (Verified 10/13/16 16:57) Review of Systems Constitutional: ABSENT: chills, fever(s), headache(s), weight gain, weight loss Eyes: ABSENT: visual disturbances Ears: ABSENT: hearing changes Cardiovascular: ABSENT: chest pain, dyspnea on exertion, edema, orthropnea, palpitations Respiratory: ABSENT: cough, hemoptysis Gastrointestinal: ABSENT: abdominal pain, constipation, diarrhea, hematemesis, hematochezia, nausea, vomiting Genitourinary: ABSENT: dysuria, hematuria Musculoskeletal: ABSENT: joint swelling Integumentary: ABSENT: rash, wounds Neurological: ABSENT: abnormal gait, abnormal speech, confusion, dizziness, focal weakness, syncope Psychiatric: ABSENT: anxiety, depression, homidical ideation, suicidal ideation Endocrine: ABSENT: cold intolerance, heat intolerance, polydipsia, polyuria Hematologic/Lymphatic: ABSENT: easy bleeding, easy bruising Physical Exam Vital Signs: Temp Pulse Resp BP Pulse Ox 98.6 F 45 L 15 127/76 H 98 01/17/17 01:44 01/17/17 01:44 01/17/17 05:01 01/17/17 05:00 01/17/17 05:01 General appearance: PRESENT: no acute distress, well-developed, well-nourished Head exam: PRESENT: atraumatic, normocephalic Eye exam: PRESENT: conjunctiva pink, EOMI, PERRLA. ABSENT: scleral icterus Ear exam: PRESENT: normal external ear exam Mouth exam: PRESENT: moist, tongue midline Neck exam: ABSENT: carotid bruit, JVD, lymphadenopathy, thyromegaly Respiratory exam: PRESENT: clear to auscultation marco. ABSENT: rales, rhonchi, wheezes Cardiovascular exam: PRESENT: RRR. ABSENT: diastolic murmur, rubs, systolic murmur Pulses: PRESENT: normal dorsalis pedis pul Vascular exam: PRESENT: normal capillary refill GI/Abdominal exam: PRESENT: normal bowel sounds, soft. ABSENT: distended, guarding, mass, organolmegaly, rebound, tenderness Rectal exam: PRESENT: deferred Extremities exam: PRESENT: full ROM. ABSENT: calf tenderness, clubbing, pedal edema Neurological exam: PRESENT: alert, awake, oriented to person, oriented to place , oriented to time, oriented to situation, CN II-XII grossly intact. ABSENT: motor sensory deficit Psychiatric exam: PRESENT: appropriate affect, normal mood. ABSENT: homicidal ideation, suicidal ideation Skin exam: PRESENT: dry, intact, warm. ABSENT: cyanosis, rash Results Impressions: Chest X-Ray 01/17/17 02:21 IMPRESSION: 1. No acute pulmonary process identified. Cardiomegaly. Assessment & Plan - Diagnosis (1) Sinus bradycardia Is this a current diagnosis for this admission?: Yes Plan: Likely secondary to accidental additional dose of diltiazem, telemetry observation, hold diltiazem, evaluate TSH orthostatic blood pressures. Consider cardiology consultation if not significantly improved. (2) Dizziness Is this a current diagnosis for this admission?: Yes Plan: Secondary to #1 fluid resuscitation, hold diltiazem, reevaluate orthostatic blood pressure. (3) Renal insufficiency Is this a current diagnosis for this admission?: Yes Plan: Likely secondary to #1, resuscitation, reevaluate chemistry (4) Diabetes 1.5, managed as type 1 Is this a current diagnosis for this admission?: Yes Plan: Home regiment with sliding scale insulin - Time Time Spent: 30 to 50 Minutes - Inpatient Certification Medical Necessity: Need Close Monitoring Due to Risk of Patient Decompensation
[2017-01-17] MEDS: NORMAL SALINE 1000 ML 1,000 ML IV SCH ×2 (06:53→10:41)
[2017-01-17] MEDS: FINASTERIDE 5 MG TABLET PO SCH (09:48)
[2017-01-17] MEDS: ATORVASTATIN CALCIUM 20 MG TABLET PO SCH (09:48)
[2017-01-17] MEDS: DOCUSATE SODIUM 100 MG CAPSULE PO SCH ×2 (09:48→17:36)
[2017-01-17 10:22] LABS: CREATINE KINASE MB 0.65 ng/mL (<4.55)
[2017-01-17 10:28] LABS: TROPONIN I < 0.012 ng/mL
[2017-01-17] MEDS: DILTIAZEM HCL 30 MG TABLET PO SCH ×2 (14:47→23:10)
[2017-01-17] MEDS ORDERED: NORMAL SALINE 1000 ML 1,000 ML IV PRN (14:58)
[2017-01-17 17:15] LABS: CREATINE KINASE MB 0.68 ng/mL (<4.55)
[2017-01-17 17:18] LABS: TROPONIN I < 0.012 ng/mL
[2017-01-17 20:52] LABS: ANION GAP 11 (5-19); BLOOD UREA NITROGEN 21 mg/dL (7-20); CALCIUM 8.9 mg/dL (8.4-10.2); CARBON DIOXIDE 24 mmol/L (22-30); CHLORIDE 108 mmol/L (98-107); CREATININE RESULT 1.61 mg/dL (0.52-1.25); GLUCOSE 119 mg/dL (75-110); SODIUM 143.4 mmol/L (137-145)
[2017-01-17 22:15] LABS: CREATINE KINASE MB 0.76 ng/mL (<4.55); TROPONIN I < 0.012 ng/mL
--- NOTE | 2017-01-17 23:23 | EKG REPORT ---
SEVERITY:- BORDERLINE ECG - SINUS BRADYCARDIA BORDERLINE T WAVE ABNORMALITIES : Confirmed by: Thalia Rose 17-Jan-2017 23:22:08
[2017-01-18] MEDS: DILTIAZEM HCL 30 MG TABLET PO SCH ×2 (05:42→15:12)
[2017-01-18] MEDS ORDERED: AMLODIPINE BESYLATE 10 MG TABLET PO ONE (06:00)
[2017-01-18] MEDS: DOCUSATE SODIUM 100 MG CAPSULE PO SCH (09:58)
[2017-01-18] MEDS: FINASTERIDE 5 MG TABLET PO SCH (09:59)
[2017-01-18] MEDS: ATORVASTATIN CALCIUM 20 MG TABLET PO SCH (09:59)
[2017-01-18] MEDS ORDERED: LOSARTAN POTASSIUM 50 MG TABLET PO ONE (10:00)
[2017-01-18] MEDS ORDERED: HYDRALAZINE HCL 50 MG TABLET PO ONE (10:00)
[2017-01-18] MEDS ORDERED: METOPROLOL SUCCINATE 50 MG TAB.SR.24H PO ONE (10:00)
[2017-01-18] MEDS ORDERED: IPRATROPIUM/ALBUTEROL 0.5-2.5 MG/3 ML AMPUL NEB PRN (15:00)
[2017-01-18] MEDS ORDERED: MAGNESIUM HYDROXIDE SUSP 30 ML UDCUP PO PRN (15:00)
[2017-01-18] MEDS ORDERED: ACETAMINOPHEN 325 MG TABLET PO PRN (15:00)
--- NOTE | 2017-01-18 16:25 | PDOC DISCHARGE SUMMARY ---
General - Admit/Disc Date/PCP Admission Date/Primary Care Provider: 01/17/17 05:27 Discharge Date: 01/18/17 - Discharge Diagnosis (1) Sinus bradycardia Is this a current diagnosis for this admission?: Yes Summary: This was attributed to possibly taken an accidental additional dose of diltiazem. He was watched on telemetry. His bradycardia resolved. Additionally, his other blood pressure medications were held because he was mildly hypotensive, however not orthostatic. With IV fluids, his blood pressure improved as well. (2) Acute kidney injury Is this a current diagnosis for this admission?: Yes Summary: this was attributed to hypotension as well. With IVFs, his Cr decreased from 2.09 to 1.61 within a day. Full renal recovery is expected. (3) Chronic atrial fibrillation Is this a current diagnosis for this admission?: Yes Summary: He is normally maintained on diltiazem and metoprolol for rate control. He is also anticoagulated. His hospital stay was uneventful. His rate was within normal limits at the time of discharge. (4) Diabetes 1.5, managed as type 1 Is this a current diagnosis for this admission?: Yes Summary: Blood sugars were well controlled. - Additional Information Resuscitation Status: Full Code Discharge Diet: Cardiac, Diabetic Discharge Activity: Activity As Tolerated Home Medications: Atorvastatin Calcium [Lipitor 40 mg Tablet] 20 mg PO QHS 01/17/17 Dabigatran Etexilate Mesylate [Pradaxa 150 mg Capsule] 150 mg PO Q12 01/17/17 Dextrose [Glucose] 3 tab PO DAILYP PRN 01/17/17 Diltiazem HCl [Diltiazem 24Hr ER] 300 mg PO DAILY 01/17/17 Finasteride [Proscar 5 mg Tablet] 5 mg PO DAILY 01/17/17 Hydralazine HCl [Apresoline 50 mg Tablet] 50 mg PO Q8 01/17/17 Insulin Glargine,Hum.rec.anlog [Lantus Insulin 100 Unit/1 ml 10 ml] 40 unit SQ QHS 01/17/17 Lansoprazole [Prevacid 15 mg Odt Tablet] 15 mg PO DAILY 01/17/17 Losartan Potassium [Cozaar 100 mg Tablet] 100 mg PO DAILY 01/17/17 Metoprolol Succinate [Toprol XL 100 mg Tablet] 50 mg PO Q12 01/17/17 Multivitamin [Tab-A-Elba (Multiple Vitamin) Tablet] 1 tab PO DAILY 01/17/17 Potassium Chloride [Klor-Con 10 Meq Tablet.sa] 20 meq PO BID 01/17/17 Sildenafil Citrate [Viagra] 100 mg PO DAILY 01/17/17 Tamsulosin HCl [Flomax 0.4 mg Cap.sr] 0.4 mg PO DAILY 01/17/17 History of Present Illness History of Present Illness: SHARAN SMART is a 56 year old male with chronic atrial fibrillation who presented to the emergency department with dizziness. He was found to be hypotensive and bradycardic. It was suspected that he may have taken an additional dose of diltiazem, thus leading to his current symptoms. He did not report chest pain or shortness of breath. Hospital Course Hospital Course: Mr. Smart was admitted for hypotension and bradycardia. He was treated with IV fluids. His blood pressure medications were held. Prior to admission, he was taking losartan, hydralazine, Toprol-XL, and diltiazem ER. After fluid resuscitation in the ED, his blood pressure and pulse improved. He was admitted for observation. His hospital stay was uneventful. Physical Exam Vital Signs: Temp Pulse Resp BP Pulse Ox 98.2 F 75 18 165/90 H 99 01/18/17 12:33 01/18/17 12:33 01/18/17 12:33 01/18/17 12:33 01/18/17 12:33 Intake & Output 01/17/17 01/18/17 01/19/17 06:59 06:59 06:59 Intake Total 3580 Output Total 15 Balance 3565 Weight 99.2 kg General appearance: PRESENT: no acute distress, well-developed, well-nourished Head exam: PRESENT: atraumatic, normocephalic Respiratory exam: PRESENT: clear to auscultation marco. ABSENT: rales, rhonchi, wheezes Cardiovascular exam: PRESENT: RRR. ABSENT: diastolic murmur, rubs, systolic murmur Neurological exam: PRESENT: alert, awake, oriented to person, oriented to place , oriented to time, oriented to situation, CN II-XII grossly intact. ABSENT: motor sensory deficit Psychiatric exam: PRESENT: appropriate affect, normal mood. ABSENT: homicidal ideation, suicidal ideation Results Laboratory Results: 01/17/17 15:40 01/17/17 15:40 Sodium 143.4 Potassium 4.0 Chloride 108 H Carbon Dioxide 24 Anion Gap 11 BUN 21 H Creatinine 1.61 H Est GFR ( Amer) 54 L Est GFR (Non-Af Amer) 44 L Glucose 119 H Calcium 8.9 01/17/17 01/17/17 01/17/17 09:06 09:06 15:40 Creatine Kinase 76 60 CK-MB (CK-2) 0.65 Troponin I < 0.012 01/17/17 01/17/17 01/17/17 15:40 21:25 21:25 Creatine Kinase 70 CK-MB (CK-2) 0.68 0.76 Troponin I < 0.012 < 0.012 Impressions: Chest X-Ray 01/17/17 02:21 IMPRESSION: 1. No acute pulmonary process identified. Cardiomegaly. Qualifiers Reason(s) for not prescribing Overlap Therapy:: Not indicated Plan Discharge Plan: Follow-up with PCP as needed Time Spent: Less than 30 Minutes
[2017-01-18 18:27] VITALS: BP 180/96
== END 2017-01-18 15:30 | disposition home or self-care (01) ==
LOC: ER 01:25 → EH 05:27 → 4N 07:41
PROVIDERS: ADMIT Internal Medicine; ATTEND Internal Medicine
DX: R00.1 Bradycardia, unspecified (principal); I95.9 Hypotension, unspecified; N17.9 Acute kidney failure, unspecified; I48.2 Chronic atrial fibrillation; E10.9 Type 1 diabetes mellitus without complications; I25.10 Atherosclerotic heart disease of native coronary artery without angina pectoris; E78.5 Hyperlipidemia, unspecified; I10 Essential (primary) hypertension; Z79.899 Other long term (current) drug therapy; Z85.528 Personal history of other malignant neoplasm of kidney; Z90.5 Acquired absence of kidney; Z82.49 Family history of ischemic heart disease and other diseases of the circulatory system; Z79.02 Long term (current) use of antithrombotics/antiplatelets
CPT/HCPCS: 93005; 99285; 96360; 36415; 82553; 82962 ×2; 82550; 83735; 84443; 85025; 80048; 80053; 84484; 71010; 93010; G0378 ×3; J7030 ×2; J7040

== ENCOUNTER 2017-03-11 01:10 | Emergency (ER) | payer OTHER ==
[~2017-03-11 01:10] MED LIST: ASPIRIN 81 MG TABLET, CHEWABLE PO ONE
--- NOTE | 2017-03-11 02:33 | RADIOLOGY REPORT (SQ) ---
EXAM DESCRIPTION: CHEST SINGLE VIEW CLINICAL HISTORY: cp COMPARISON: 01/17/2017 FINDINGS: Single frontal view of the chest. Cardiomegaly. Leads overlie the chest. No consolidation, pneumothorax, or pleural effusion. No displaced rib fractures identified. Upper abdominal soft tissues are unremarkable. IMPRESSION: 1. No acute pulmonary process identified. Cardiomegaly.
[2017-03-11 02:43] LABS: ABSOLUTE EOSINOPHILS # (AUTO) 0.1 10^3/uL (0.0-0.6); ABSOLUTE MONOCYTES (AUTO) 0.7 10^3/uL (0.1-1.4); ABSOLUTE NEUT (AUTO) 5.8 10^3/uL (1.7-8.2); BASOPHILS % (AUTO) 0.4 % (0-2); EOSINOPHILS % (AUTO) 1.7 % (0-6); HEMATOCRIT 32.9 % (37.9-51.0); HEMOGLOBIN 11.1 g/dL (13.5-17.0); LYMPHOCYTES % (AUTO) 23.3 % (13-45); MEAN CORPUSCULAR HEMOGLOBIN 26.1 pg (27.0-33.4); MEAN CORPUSCULAR HGB CONC 33.7 g/dL (32.0-36.0); MEAN CORPUSCULAR VOLUME 78 fl (80-97); MONOCYTES % (AUTO) 8.4 % (3-13); PLATELET COUNT 193 10^3/uL (150-450); RED BLOOD COUNT 4.25 10^6/uL (4.35-5.55); RED CELL DISTRIBUTION WIDTH 16.9 % (11.5-14.0); SEGMENTED NEUTROPHILS % (AUTO) 66.2 % (42-78); TOTAL CELLS COUNTED % (AUTO) 100 %; WHITE BLOOD COUNT 8.8 10^3/uL (4.0-10.5)
[2017-03-11 03:00] LABS: ALANINE AMINOTRANSFERASE 35 U/L (21-72); ALKALINE PHOSPHATASE 53 U/L (38-126); ANION GAP 9 (5-19); ASPARTATE AMINO TRANSFERASE 23 U/L (17-59); BILIRUBIN,DIRECT 0.2 mg/dL (0.0-0.4); BILIRUBIN,TOTAL 0.7 mg/dL (0.2-1.3); BLOOD UREA NITROGEN 21 mg/dL (7-20); CALCIUM 9.7 mg/dL (8.4-10.2); CARBON DIOXIDE 26 mmol/L (22-30); CHLORIDE 108 mmol/L (98-107); CREATINE KINASE 100 U/L (55-170); GLUCOSE 129 mg/dL (75-110); POTASSIUM 3.9 mmol/L (3.6-5.0); SODIUM 143.4 mmol/L (137-145)
[2017-03-11] MEDS ORDERED: LIDOCAINE 2% VISCOUS SOLN 20 ML UDCUP PO ONE (03:05)
[2017-03-11] MEDS ORDERED: MAG HYDROX/AL HYDROX/SIMETH SUSP 30 ML UDCUP PO ONE (03:05)
[2017-03-11] MEDS ORDERED: METOCLOPRAMIDE HCL ORAL SOLN 10 MG/10 ML UDCUP PO ONE (03:05)
--- NOTE | 2017-03-11 03:06 | ER Document Report ---
ED General - General Chief Complaint: Chest Pain Stated Complaint: CHEST PAIN Time Seen by Provider: 03/11/17 02:09 Notes: Patient is a 57-year-old male who presents emergency department complaining of chest pain. Patient states that he was trying to go to bed when he kind of had a weird feeling in his chest at the base of his chest described as a sharp epigastric pain that was on and off lasting less than 5 seconds. Patient states he did at approximately 7 episodes prior to arrival. He denies any history of [place], CHF, COPD, asthma, stroke, GERD. States that his pain is not positional, denies any alleviating or aggravating factors. Past medical history significant for atrial fibrillation on Pradaxa with a previous history of ablation, history of left renal carcinoma status post partial nephrectomy, history of PE/DVT, high blood pressure, hyperlipidemia, history of hypokalemia Past surgical history significant for partial nephrectomy Denies any tobacco use, alcohol or drug use. Primary care is with the IN TRAVEL OUTSIDE OF THE [place] IN LAST 30 DAYS: No - Related Data Allergies/Adverse Reactions: No Known Allergies Allergy (Verified 03/11/17 01:11) Past Medical History - Social History Smoking Status: Unknown if Ever Smoked Family History: CAD Patient has suicidal ideation: No Patient has homicidal ideation: No - Past Medical History Cardiac Medical History: Reports: Hx Atrial Fibrillation - Sounds like patient had ablation therapy 2 years ago, Hx Coronary Artery Disease, Hx Hypercholesterolemia, Hx Hypertension Pulmonary Medical History: Neurological Medical History: Endocrine Medical History: Reports: Hx Diabetes Mellitus Type 2 Renal/ Medical History: Reports: Hx Benign Prostatic Hyperplasia. Denies: Hx Peritoneal Dialysis Malignancy Medical History: Reports Hx Renal (Kidney) Cancer - Surgery removing most of 1 of his kidneys. GI Medical History: Musculoskeltal Medical History: Psychiatric Medical History: Infectious Medical History: Past Surgical History: Reports: Hx Abdominal Surgery, Hx Cardiac Catheterization , Hx Kidney (Renal Surgery) - removed (cancer) - Immunizations Hx Diphtheria, Pertussis, Tetanus Vaccination: Yes Hx Pneumococcal Vaccination: 12/26/10 Review of Systems - Review of Systems Constitutional: No symptoms reported Cardiovascular: See HPI Respiratory: No symptoms reported Gastrointestinal: No symptoms reported Musculoskeletal: No symptoms reported Neurological/Psychological: No symptoms reported -: Yes All other systems reviewed and negative Physical Exam - Vital signs Vitals: Resp BP Pulse Ox 15 167/99 H 97 03/11/17 02:07 03/11/17 02:07 03/11/17 02:07 - Notes Notes: PHYSICAL EXAM GENERAL: Alert, interacts well. HEAD: Normocephalic, atraumatic. LUNGS: Clear to auscultation bilaterally, no wheezes, rales, or rhonchi. No respiratory distress. HEART: Regular rate and rhythm. No murmurs, gallops, or rubs. ABDOMEN: Soft, nondistended, minimal epigastric tenderness. No guarding, rebound, or rigidity.. Bowel sounds present in all 4 quadrants. EXTREMITIES: Moves all 4 extremities spontaneously. No edema, radial and dorsalis pedis pulses 2/4 bilaterally. No cyanosis. NEUROLOGICAL: Alert and oriented x4. Normal speech. PSYCH: Normal affect, normal mood. SKIN: Warm, dry, normal turgor. No rashes or lesions noted. Course - Re-evaluation Re-evalutation: 03/11/17 06:14 Patient is a 57-year-old male is hemodynamic stable, no acute distress afebrile with complete resolution of his symptoms after GI cocktail. Acute abdomen series shows evidence of nonspecific bowel pattern without evidence of obstruction. Patient without nausea, vomiting tolerating p.o. Passing gas from below having bowel movements. His presentation is consistent with constipation. No chest pain currently. Patient is very well in appearance, vitals within normal limits. Low clinical suspicion for ACS given clinical history, exam, EKG without ST elevations or depressions, and negative initial troponin. HEART score less than or equal to 3. PE also seems unlikely given clinical history, absence of tachycardia or dyspnea. Well's score of 0. CXR without evidence of pneumothorax or pneumonia. No widened mediastinum. Aortic dissection also seems unlikely given history, symmetric pulses, CXR, and vitals. At this time will discharge with return precautions and follow-up recommendations. Verbal discharge instructions given a the bedside and opportunity for questions given. Medication warnings reviewed. Patient is in agreement with this plan and has verbalized understanding of return precautions and the need for primary care follow-up in the next 24-72 hours. - Vital Signs Vital signs: Temp Pulse Resp BP Pulse Ox 97.5 F 15 171/98 H 95 03/11/17 06:16 03/11/17 06:18 03/11/17 06:18 03/11/17 06:18 - Laboratory Result Diagrams: 03/11/17 02:10 03/11/17 02:10 Laboratory results interpreted by me: 03/11/17 03/11/17 02:10 02:10 RBC 4.25 L Hgb 11.1 L Hct 32.9 L MCV 78 L MCH 26.1 L RDW 16.9 H Chloride 108 H BUN 21 H Creatinine 1.57 H Est GFR ( Amer) 55 L Est GFR (Non-Af Amer) 46 L Glucose 129 H - Diagnostic Test Radiology reviewed: Image reviewed, Reports reviewed - EKG Interpretation by Me EKG shows normal: Sinus rhythm Rate: Normal Rhythm: NSR When compared to previous EKG there are: No significant change Discharge - Discharge Clinical Impression: Chest pain Qualifiers: Chest pain type: unspecified Qualified Code(s): R07.9 - Chest pain, unspecified Condition: Good Disposition: HOME, SELF-CARE Additional Instructions: Please continue with your plan to follow-up with the [facility] today. NORMAL EXAM AND WORKUP: At this time, your examination and workup show no significant abnormality. No significant abnormal physical findings were noted. All laboratory, EKG, and imaging (x-ray, CT scans, ultrasound) studies that were ordered show no significant abnormality. Although your examination and all studies that were ordered showed no significant abnormal finding, there are no examinations and no studies that are 100% accurate. There is always the possibility that some abnormality could exist and not be detected with physical examination or within the limits and capabilities of laboratory and other studies. You should return or follow up as you were instructed on your visit today for further evaluation if your symptoms do not resolve. ACID REFLUX DISEASE (GERD): Gastro-Esophageal Reflux Disease (GERD) is caused by stomach acid refluxing back up into the esophagus. The valve at the end of the esophagus may be weak. This is common in persons with a hiatal hernia. GERD symptoms can include indigestion, chest pain, heartburn, or food "sticking." Certain foods, alcohol, and aspirin can make GERD worse. Treatment depends on the severity. Usually, antacids or acid-suppressing medicines are used. When the esophagus is acutely inflamed, the physician will often prescribe membrane-protective drugs such as Carafate. Some patients benefit from medication such as Reglan that tightens the valve at the top of the stomach. Avoid those foods that bring on your symptoms. For many people, these foods are coffee, chocolate, onions, garlic, and carbonated drinks. Don't use alcohol, aspirin, caffeine, or tobacco. Don't eat late at night -- within 4 hours of bedtime. Don't over-eat. If necessary, elevate the head of your bed about 4 inches so that stomach acid will not roll up into your esophagus. Call the doctor if you develop severe chest pain, inability to swallow fluids, fever, or worsening symptoms. ANTACID THERAPY: You have been instructed to start antacid therapy. Antacids directly neutralize stomach acid. This is useful for acid irritation of the esophagus, gastritis, and ulcers. You should take two tablespoons of antacid one hour after each meal and three hours after each meal. If you are not eating, take the antacid every two hours. If you are using a concentrate (such as Maalox TC), use only one tablespoon. Many antacids affect the bowels. The most common problem is diarrhea. In this case, a pure aluminum hydroxide antacid (such as AlternaGel) can be substituted for some or all doses. If the problem is constipation, add a teaspoon of Milk of Magnesia to each dose. Call the doctor if you experience continued diarrhea or constipation, or if you develop lightheadedness, bloody stool or vomitus, severe abdominal pain, or black stool. PRILOSEC (ACID PUMP INHIBITOR): Prilosec (omeprazole) is an acid-pump inhibitor. It blocks the secretion of hydrogen ions in the acid-producing cells of the stomach. Prilosec keeps your stomach from making acid. Take all medication as prescribed, even after the pain is gone. Regular antacids may be added as needed if you have symptoms while taking this medicine. There are usually no side effects from this medication. Contact your doctor if there is fever, rash, yellow skin color, increasing abdominal pain, weakness, or unusual bruising. Return at once if you develop lightheadedness, black or bloody stool, or bloody vomitus. FOLLOW-UP CARE: If you have been referred to a physician for follow-up care, call the physician s office for an appointment as you were instructed or within the next two days. If you experience worsening or a significant change in your symptoms, notify the physician immediately or return to the Emergency Department at any time for re-evaluation. Prescriptions: Omeprazole Magnesium [Prilosec Otc] 20 mg PO DAILY #30 tablet. Ondansetron HCl [Zofran 4 mg Tablet] 1 - 2 tab PO Q4H PRN #10 tablet PRN Reason: Sucralfate [Carafate 1 gm Tablet] 1 gm PO ACHS #120 tablet
[2017-03-11 03:15] LABS: CREATINE KINASE MB 0.61 ng/mL (<4.55)
[2017-03-11 03:20] LABS: TROPONIN I < 0.012 ng/mL
--- NOTE | 2017-03-11 04:14 | RADIOLOGY REPORT (SQ) ---
EXAM DESCRIPTION: ACUTE ABDOMEN SERIES CLINICAL HISTORY: abdominal distension COMPARISON: 03/11/2017 at 1210 hours FINDINGS: Single view of the chest with upright spine views of the abdomen. Cardiomegaly. No consolidation, pneumothorax, or pleural effusion. Leads overlie the chest. No free intraperitoneal air. Postoperative change in the abdomen. Nondilated air-filled loops of large and small bowel. No definite free intraperitoneal air. No acute osseous abnormalities identified. IMPRESSION: 1. No acute pulmonary process. 2. Nonobstructive bowel gas pattern.
[2017-03-11 06:22] VITALS: BP 171/98
--- NOTE | 2017-03-11 07:58 | EKG REPORT ---
SEVERITY:- BORDERLINE ECG - SINUS RHYTHM BORDERLINE T WAVE ABNORMALITIES : Confirmed by: Alexander Roberts MD 11-Mar-2017 07:58:08
== END 2017-03-11 06:31 | disposition home or self-care (01) ==
LOC: ER 01:10
DX: R07.9 Chest pain, unspecified (principal); R10.13 Epigastric pain; I25.10 Atherosclerotic heart disease of native coronary artery without angina pectoris; E78.00 Pure hypercholesterolemia, unspecified; I10 Essential (primary) hypertension
CPT/HCPCS: 93005; 99285; 36415; 82553; 82550; 85025; 80053; 84484; 83880; 74022; 71045; 93010; J3490

== ENCOUNTER → 2017-04-26 | Outpatient (CLI) | payer OTHER ==
[2017-04-27 12:52] LABS: PSA % FREE 28.7 % (.); PSA FREE 0.86 ng/mL
== END ==
LOC: LAB 11:12
PROVIDERS: ATTEND Urology
DX: R97.20 Elevated prostate specific antigen [PSA] (principal)
CPT/HCPCS: 36415; 84154

== ENCOUNTER → 2017-11-22 | Outpatient (CLI) | payer MEDICARE ==
[2017-11-24 09:44] LABS: PROSTATE SPECIFIC ANTIGEN 2.8 ng/mL (0.0-4.0); PSA % FREE 27.9 % (.); PSA FREE 0.78 ng/mL
== END ==
LOC: OD 16:28
PROVIDERS: ATTEND Urology
DX: R97.20 Elevated prostate specific antigen [PSA] (principal)
CPT/HCPCS: 36415; 84154

== ENCOUNTER → 2018-04-03 | Outpatient (CLI) | payer MEDICARE ==
[2018-04-03 11:15] LABS: HEMATOCRIT 34.7 % (37.9-51.0); HEMOGLOBIN 12.1 g/dL (13.5-17.0); MEAN CORPUSCULAR HEMOGLOBIN 28.4 pg (27.0-33.4); MEAN CORPUSCULAR HGB CONC 34.8 g/dL (32.0-36.0); MEAN CORPUSCULAR VOLUME 82 fl (80-97); RED BLOOD COUNT 4.25 10^6/uL (4.35-5.55); RED CELL DISTRIBUTION WIDTH 14.9 % (11.5-14.0); WHITE BLOOD COUNT 7.7 10^3/uL (4.0-10.5)
[2018-04-03 11:33] LABS: APPEARANCE,URINE CLEAR; BILIRUBIN,URINE NEGATIVE (NEGATIVE); COLOR,URINE YELLOW; GLUCOSE, URINE NEGATIVE (NEGATIVE); KETONES,URINE NEGATIVE (NEGATIVE); LEUKOCYTE ESTERASE,URINE NEGATIVE (NEGATIVE); NITRITE,URINE NEGATIVE (NEGATIVE); PROTEIN,URINE 100 mg/dL (NEGATIVE); URINE SPECIFIC GRAVITY 1.013; UROBILINOGEN,URINE NEGATIVE mg/dL (<2.0)
[2018-04-03 11:34] LABS: ANION GAP 10 (5-19); BLOOD UREA NITROGEN 19 mg/dL (7-20); CALCIUM 8.9 mg/dL (8.4-10.2); CARBON DIOXIDE 29 mmol/L (22-30); CHLORIDE 104 mmol/L (98-107); GLUCOSE 140 mg/dL (75-110); PHOSPHORUS 3.2 mg/dL (2.5-4.5); POTASSIUM 3.9 mmol/L (3.6-5.0); SODIUM 142.5 mmol/L (137-145)
[2018-04-03 11:47] LABS: UR PRO/CREAT RATIO RESULT 1.2 mg/mg (0.0-0.2); URINE CREATININE 104.6 mg/dL (22-328); URINE PROTEIN 125.5 mg/dL (<12)
[2018-04-03 11:51] LABS: PLATELET COUNT 159 10^3/uL (150-450)
== END ==
LOC: OD 10:27
PROVIDERS: ATTEND Physician Assistant Medical
DX: N18.3 Chronic kidney disease, stage 3 (moderate) (principal); R80.9 Proteinuria, unspecified; D64.9 Anemia, unspecified
CPT/HCPCS: 36415; 80048; 81001; 82570; 83970; 84100; 84156; 85027

== ENCOUNTER → 2018-05-02 | Outpatient (CLI) | payer OTHER, MEDICARE ==
[2018-05-02 11:02] LABS: HEMATOCRIT 34.4 % (37.9-51.0); HEMOGLOBIN 12.2 g/dL (13.5-17.0); MEAN CORPUSCULAR HEMOGLOBIN 28.5 pg (27.0-33.4); MEAN CORPUSCULAR HGB CONC 35.4 g/dL (32.0-36.0); MEAN CORPUSCULAR VOLUME 81 fl (80-97); PLATELET COUNT 201 10^3/uL (150-450); RED BLOOD COUNT 4.27 10^6/uL (4.35-5.55); RED CELL DISTRIBUTION WIDTH 14.7 % (11.5-14.0); WHITE BLOOD COUNT 7.9 10^3/uL (4.0-10.5)
[2018-05-02 11:05] LABS: APPEARANCE,URINE CLEAR; BILIRUBIN,URINE NEGATIVE (NEGATIVE); COLOR,URINE YELLOW; GLUCOSE, URINE NEGATIVE (NEGATIVE); KETONES,URINE NEGATIVE (NEGATIVE); LEUKOCYTE ESTERASE,URINE NEGATIVE (NEGATIVE); NITRITE,URINE NEGATIVE (NEGATIVE); PROTEIN,URINE 100 mg/dL (NEGATIVE); URINE SPECIFIC GRAVITY 1.017; UROBILINOGEN,URINE NEGATIVE mg/dL (<2.0)
[2018-05-02 11:25] LABS: ALANINE AMINOTRANSFERASE 40 U/L (21-72); ALKALINE PHOSPHATASE 65 U/L (38-126); ANION GAP 10 (5-19); ASPARTATE AMINO TRANSFERASE 21 U/L (17-59); BILIRUBIN,DIRECT 0.1 mg/dL (0.0-0.4); BILIRUBIN,TOTAL 0.9 mg/dL (0.2-1.3); BLOOD UREA NITROGEN 20 mg/dL (7-20); CALCIUM 9.2 mg/dL (8.4-10.2); CARBON DIOXIDE 30 mmol/L (22-30); CHLORIDE 103 mmol/L (98-107); GLUCOSE 104 mg/dL (75-110); POTASSIUM 3.7 mmol/L (3.6-5.0); SODIUM 143.3 mmol/L (137-145); TOTAL PROTEIN 7.5 g/dL (6.3-8.2)
== END ==
LOC: OD 10:19
PROVIDERS: ATTEND Internal Medicine Nephrology
DX: N18.3 Chronic kidney disease, stage 3 (moderate) (principal); D64.9 Anemia, unspecified; I12.9 Hypertensive chronic kidney disease with stage 1 through stage 4 chronic kidney disease, or unspecified chronic kidney disease; R80.9 Proteinuria, unspecified
CPT/HCPCS: 36415; 80053; 81001; 85027

== ENCOUNTER 2018-05-26 19:53 | Emergency (ER) | payer OTHER, MEDICARE ==
[2018-05-26] MEDS ORDERED: NORMAL SALINE 1000 ML 1,000 ML IV ONE (22:17)
--- NOTE | 2018-05-26 22:19 | ER Document Report ---
ED Medical Screen (RME) - General Chief Complaint: High Blood Sugar Stated Complaint: BLOOD SUGAR ISSUE Time Seen by Provider: 05/26/18 22:17 Primary Care Provider: Lila PITTMAN MD [Primary Care Provider] - Follow up as needed Notes: 58-year-old male chief complaint of elevated blood sugars. He states he has been urinating very frequently, checked his blood sugar was high, almost 400 on another occasion. He only takes Lantus for his blood sugars. He denies vomiting but he does report some nausea. Denies any current symptoms. TRAVEL OUTSIDE OF THE [place] IN LAST 30 DAYS: No - Related Data Allergies/Adverse Reactions: No Known Allergies Allergy (Verified 03/11/17 01:11) Past Medical History - Past Medical History Cardiac Medical History: Reports: Hx Atrial Fibrillation - Sounds like patient had ablation therapy 2 years ago, Hx Coronary Artery Disease, Hx Hyperch olesterolemia, Hx Hypertension Pulmonary Medical History: Neurological Medical History: Endocrine Medical History: Reports: Hx Diabetes Mellitus Type 2 Renal/ Medical History: Reports: Hx Benign Prostatic Hyperplasia. Denies: Hx Peritoneal Dialysis Malignancy Medical History: Reports Hx Renal (Kidney) Cancer - Surgery removing most of 1 of his kidneys. GI Medical History: Musculoskeltal Medical History: Psychiatric Medical History: Infectious Medical History: Past Surgical History: Reports: Hx Abdominal Surgery, Hx Cardiac Catheterization, Hx Kidney (Renal Surgery) - removed (cancer) - Immunizations Hx Diphtheria, Pertussis, Tetanus Vaccination: Yes History of Influenza Vaccine for 11/2016 - 04/2017 Season: Yes Physical Exam - Vital signs Vitals: Temp Pulse Resp BP Pulse Ox 98.3 F 55 L 17 169/81 H 97 05/26/18 20:05 05/26/18 20:05 05/26/18 20:05 05/26/18 20:05 05/26/18 20:05 - General General appearance: Appears well In distress: None - Cardiovascular Rhythm: Regular. No: Tachycardia Heart sounds: Normal auscultation, S1 appreciated, S2 appreciated Course - Vital Signs Vital signs: Temp Pulse Resp BP Pulse Ox 98.3 F 55 L 17 169/81 H 97 05/26/18 20:05 05/26/18 20:05 05/26/18 20:05 05/26/18 20:05 05/26/18 20:05 Doctor's Discharge - Discharge Referrals: Lila PITTMAN MD [Primary Care Provider] - Follow up as needed
[2018-05-26 22:41] LABS: ABSOLUTE EOSINOPHILS # (AUTO) 0.2 10^3/uL (0.0-0.6); ABSOLUTE LYMPHOCYTES (AUTO) 2.2 10^3/uL (0.5-4.7); ABSOLUTE MONOCYTES (AUTO) 0.6 10^3/uL (0.1-1.4); ABSOLUTE NEUT (AUTO) 5.7 10^3/uL (1.7-8.2); BASOPHILS % (AUTO) 0.5 % (0-2); EOSINOPHILS % (AUTO) 2.1 % (0-6); HEMOGLOBIN 12.8 g/dL (13.5-17.0); LYMPHOCYTES % (AUTO) 25.1 % (13-45); MEAN CORPUSCULAR HEMOGLOBIN 28.1 pg (27.0-33.4); MEAN CORPUSCULAR HGB CONC 34.5 g/dL (32.0-36.0); MEAN CORPUSCULAR VOLUME 82 fl (80-97); MONOCYTES % (AUTO) 7.1 % (3-13); PLATELET COUNT 191 10^3/uL (150-450); RED BLOOD COUNT 4.53 10^6/uL (4.35-5.55); SEGMENTED NEUTROPHILS % (AUTO) 65.2 % (42-78); TOTAL CELLS COUNTED % (AUTO) 100 %; WHITE BLOOD COUNT 8.7 10^3/uL (4.0-10.5)
[2018-05-26 22:43] LABS: VENOUS BLOOD BASE EXCESS 5.5 mmol/L; VENOUS BLOOD PCO2 54.4 mmHg (35-63); VENOUS BLOOD PH 7.39 (7.30-7.42)
[2018-05-26 23:01] LABS: ANION GAP 9 (5-19); BLOOD UREA NITROGEN 28 mg/dL (7-20); CALCIUM 9.6 mg/dL (8.4-10.2); CARBON DIOXIDE 28 mmol/L (22-30); CHLORIDE 98 mmol/L (98-107); GLUCOSE 395 mg/dL (75-110); POTASSIUM 4.5 mmol/L (3.6-5.0); SODIUM 135.1 mmol/L (137-145)
[2018-05-26 23:02] LABS: APPEARANCE,URINE CLEAR; BILIRUBIN,URINE NEGATIVE (NEGATIVE); COLOR,URINE YELLOW; GLUCOSE, URINE >=500 mg/dL (NEGATIVE); KETONES,URINE NEGATIVE (NEGATIVE); LEUKOCYTE ESTERASE,URINE NEGATIVE (NEGATIVE); NITRITE,URINE NEGATIVE (NEGATIVE); PROTEIN,URINE 100 mg/dL (NEGATIVE); URINE SPECIFIC GRAVITY 1.018; UROBILINOGEN,URINE NEGATIVE mg/dL (<2.0)
[2018-05-27] MEDS ORDERED: INSULIN REG, HUMAN 100 UNIT/ML 3 ML VIAL (PYX) SUBCUT ONE (02:26)
--- NOTE | 2018-05-27 02:26 | ER Document Report ---
ED General - General Chief Complaint: High Blood Sugar Stated Complaint: BLOOD SUGAR ISSUE Time Seen by Provider: 05/26/18 22:17 Primary Care Provider: Lila PITTMAN MD [ACTIVE STAFF] - Follow up as needed Notes: Patient is a 58-year-old male with a past history of type 2 diabetes managed with Lantus, hypertension, obesity, presents due to concerns of hyperglycemia. Patient reports that he is been checking his blood sugars at home, these are regularly elevated in the 4-500 ranges. He also notes that he has been urinating heavily especially at night. Has been taking his Lantus as prescribed but denies taking anything else to control his blood sugars. He follows at the [facility] for his primary care, has not seen them in some time. Denies any specific symptoms otherwise beyond polyuria and polydipsia. Specifically denies chest pain, shortness of breath, focal abdominal pain, weakness, numbness or confus ion. Nothing seems to improve or worsen his symptoms. Has a long-standing history of similar symptoms in the past. Symptoms are described as being constant, mild to moderate in nature TRAVEL OUTSIDE OF THE [place] IN LAST 30 DAYS: No - Related Data Allergies/Adverse Reactions: No Known Allergies Allergy (Verified 03/11/17 01:11) Past Medical History - General Information source: Patient - Social History Smoking Status: Never Smoker Chew tobacco use (# tins/day): No Frequency of alcohol use: None Drug Abuse: None Lives with: Family Family History: CAD Patient has suicidal ideation: No Patient has homicidal ideation: No - Past Medical History Cardiac Medical History: Reports: Hx Atrial Fibrillation - Sounds like patient had ablation therapy 2 years ago, Hx Coronary Artery Disease, Hx Hypercholesterolemia, Hx Hypertension Pulmonary Medical History: Neurological Medical History: Endocrine Medical History: Reports: Hx Diabetes Mellitus Type 2 Renal/ Medical History: Reports: Hx Benign Prostatic Hyperplasia. Denies: Hx Peritoneal Dialysis Malignancy Medical History: Reports Hx Renal (Kidney) Cancer - Surgery removing most of 1 of his kidneys. GI Medical History: Musculoskeletal Medical History: Psychiatric Medical History: Infectious Medical History: Past Surgical History: Reports: Hx Abdominal Surgery, Hx Cardiac Catheterization, Hx Kidney (Renal Surgery) - removed (cancer) - Immunizations Hx Diphtheria, Pertussis, Tetanus Vaccination: Yes Hx Pneumococcal Vaccination: 12/26/10 Review of Systems - Review of Systems Notes: Constitutional: Negative for fever. HENT: Negative for sore throat. Eyes: Negative for visual changes. Cardiovascular: Negative for chest pain. Respiratory: Negative for shortness of breath. Gastrointestinal: Negative for abdominal pain, vomiting or diarrhea. Genitourinary: Negative for dysuria. Musculoskeletal: Negative for back pain. Skin: Negative for rash. Neurological: Negative for headaches, weakness or numbness. 10 point ROS negative except as marked above and in HPI. Physical Exam - Vital signs Vitals: Temp Pulse Resp BP Pulse Ox 98.3 F 55 L 17 169/81 H 97 05/26/18 20:05 05/26/18 20:05 05/26/18 20:05 05/26/18 20:05 05/26/18 20:05 Interpretation: Hypertensive Notes: PHYSICAL EXAMINATION: GENERAL: Well-appearing, well-nourished and in no acute distress. HEAD: Atraumatic, normocephalic. EYES: Pupils equal round and reactive to light, extraocular movements intact, sclera anicteric, conjunctiva are normal. ENT: nares patent, oropharynx clear without exudates. Moist mucous membranes. NECK: Normal range of motion, supple without lymphadenopathy LUNGS: Breath sounds clear to auscultation bilaterally and equal. No wheezes rales or rhonchi. HEART: Regular rate and rhythm without murmurs ABDOMEN: Soft, nontender, normoactive bowel sounds. No guarding, no rebound. No masses appreciated. EXTREMITIES: Normal range of motion, no pitting or edema. No cyanosis. NEUROLOGICAL: No focal neurological deficits. Moves all extremities spontaneously and on command. PSYCH: Normal mood, normal affect. SKIN: Warm, Dry, normal turgor, no rashes or lesions noted. Course - Re-evaluation Re-evalutation: 05/27/18 02:26 Presentation of asymptomatic hyperglycemia. There is no evidence of HHS or diabetic ketoacidosis on laboratories or based on clinical history. Patient's vitals are within normal limits. They deny any acute focal complaints. Treatment with insulin and IV fluids given here in the emergency department with appropriate response of the blood sugar. Patient does have primary care follow- up. Patient was instructed to continue taking their metformin and advised they will likely need to increase dietary modification and may also need medication changes. Indications to return to emergency department as well as the importance of close outpatient follow-up were discussed at length. Patient verbalized understanding of the need for close follow-up and indications to ret urn to the ED. - Vital Signs Vital signs: Temp Pulse Resp BP Pulse Ox 98.3 F 55 L 17 166/82 H 97 05/26/18 20:05 05/26/18 20:05 05/26/18 20:05 05/27/18 02:50 05/26/18 20:05 - Laboratory Result Diagrams: 05/26/18 22:30 05/26/18 22:30 Laboratory results interpreted by me: 05/26/18 05/26/18 05/26/18 22:30 22:30 22:30 Hgb 12.8 L Hct 37.0 L RDW 15.0 H Sodium 135.1 L BUN 28 H Creatinine 1.79 H Est GFR ( Amer) 47 L Est GFR (Non-Af Amer) 39 L Glucose 395 H POC Glucose Urine Protein 100 H Urine Glucose (UA) >=500 H 05/27/18 02:45 Hgb Hct RDW Sodium BUN Creatinine Est GFR ( Amer) Est GFR (Non-Af Amer) Glucose POC Glucose 240 H Urine Protein Urine Glucose (UA) Discharge - Discharge Clinical Impression: Hyperglycemia, Polyuria Condition: Good Disposition: HOME, SELF-CARE Additional Instructions: You need to followup urgently with your primary care doctor as your blood sugars were dangerously high today. You did not have any evidence of a dangerous condition associated with these blood sugars at this time. However, it is very important that you get your blood sugars under control. Please take all of your medications exactly as directed. You should avoid foods that are high in carbo hydrates and sugary foods. Losing weight will also help to better control your blood sugars. Please return to emergency department immediately if you develop weakness, persistent vomiting, confusion, or any other symptoms that are concerning to you. Referrals: Lila PITTMAN MD [ACTIVE STAFF] - Follow up as needed
[2018-05-27 02:55] VITALS: BP 166/82
== END 2018-05-27 02:55 | disposition home or self-care (01) ==
LOC: ER 19:53
DX: E11.65 Type 2 diabetes mellitus with hyperglycemia (principal); Z79.4 Long term (current) use of insulin; Z79.84 Long term (current) use of oral hypoglycemic drugs; I10 Essential (primary) hypertension; R35.8 Other polyuria; R63.1 Polydipsia; I25.10 Atherosclerotic heart disease of native coronary artery without angina pectoris; Z85.528 Personal history of other malignant neoplasm of kidney; Z90.5 Acquired absence of kidney
CPT/HCPCS: 99284; 96360; 96361; 36415; 82962; 85025; 80048; 81001; 82803; J1815; J7030

== ENCOUNTER → 2018-10-11 | Outpatient (CLI) | payer OTHER, MEDICARE ==
[2018-10-11 13:12] LABS: HEMOGLOBIN 11.1 g/dL (13.5-17.0); MEAN CORPUSCULAR HEMOGLOBIN 27.2 pg (27.0-33.4); MEAN CORPUSCULAR HGB CONC 33.7 g/dL (32.0-36.0); MEAN CORPUSCULAR VOLUME 81 fl (80-97); PLATELET COUNT 180 10^3/uL (150-450); RED BLOOD COUNT 4.09 10^6/uL (4.35-5.55); RED CELL DISTRIBUTION WIDTH 16.3 % (11.5-14.0); WHITE BLOOD COUNT 7.4 10^3/uL (4.0-10.5)
[2018-10-11 13:20] LABS: APPEARANCE,URINE SLIGHTLY-CLOUDY; BILIRUBIN,URINE NEGATIVE (NEGATIVE); COLOR,URINE YELLOW; GLUCOSE, URINE NEGATIVE (NEGATIVE); KETONES,URINE NEGATIVE (NEGATIVE); LEUKOCYTE ESTERASE,URINE NEGATIVE (NEGATIVE); NITRITE,URINE NEGATIVE (NEGATIVE); PROTEIN,URINE >=500 mg/dL (NEGATIVE); URINE SPECIFIC GRAVITY 1.016; UROBILINOGEN,URINE NEGATIVE mg/dL (<2.0)
[2018-10-11 13:38] LABS: ANION GAP 9 (5-19); BLOOD UREA NITROGEN 18 mg/dL (7-20); CALCIUM 8.8 mg/dL (8.4-10.2); CARBON DIOXIDE 28 mmol/L (22-30); CHLORIDE 104 mmol/L (98-107); GLUCOSE 155 mg/dL (75-110); POTASSIUM 3.8 mmol/L (3.6-5.0)
[2018-10-11 13:57] LABS: UR PRO/CREAT RATIO RESULT 1.4 mg/mg (0.0-0.2); URINE PROTEIN 287.3 mg/dL (<12)
== END ==
LOC: OD 12:15
PROVIDERS: ATTEND Internal Medicine Nephrology
DX: I12.9 Hypertensive chronic kidney disease with stage 1 through stage 4 chronic kidney disease, or unspecified chronic kidney disease (principal); N18.3 Chronic kidney disease, stage 3 (moderate); E11.22 Type 2 diabetes mellitus with diabetic chronic kidney disease; R60.9 Edema, unspecified
CPT/HCPCS: 36415; 80048; 81001; 82570; 84156; 85027

== ENCOUNTER 2018-10-31 16:10 | Emergency (ER) | payer OTHER, MEDICARE ==
--- NOTE | 2018-10-31 16:29 | ER Document Report ---
ED Medical Screen (RME) - General Chief Complaint: Shortness Of Breath Stated Complaint: SHORTNESS OF BREATH Time Seen by Provider: 10/31/18 16:27 Primary Care Provider: Lila PITTMAN MD [Primary Care Provider] - Follow up as needed Mode of Arrival: Ambulatory Information source: Patient Notes: 58-year-old male presents to ED for complaint of shortness of breath for a week. He states he has a history of A. fib high blood pressure diabetes type 2 kidney cancer chronic kidney disease reflux. He is on blood thinners. He is alert oriented respirations regular and unlabored speaking in full sentences lungs are clear to auscultation. Patient is nontoxic in appearance. He states he is retired and lives with his family. I have greeted and performed a rapid initial assessment of this patient. A comprehensive ED assessment and evaluation of the patient, analysis of test results and completion of medical decision making process will be conducted by an additional ED providers. TRAVEL OUTSIDE OF THE [place] IN LAST 30 DAYS: No - Related Data Allergies/Adverse Reactions: No Known Allergies Allergy (Verified 10/31/18 16:11) Past Medical History - Past Medical History Cardiac Medical History: Reports: Hx Atrial Fibrillation - Sounds like patient had ablation therapy 2 years ago, Hx Coronary Artery Disease, Hx Hypercholesterolemia, Hx Hypertension Pulmonary Medical History: Neurological Medical History: Endocrine Medical History: Reports: Hx Diabetes Mellitus Type 2 Renal/ Medical History: Reports: Hx Benign Prostatic Hyperplasia. Denies: Hx Peritoneal Dialysis Malignancy Medical History: Reports Hx Renal (Kidney) Cancer - Surgery removing most of 1 of his kidneys. GI Medical History: Musculoskeltal Medical History: Psychiatric Medical History: Infectious Medical History: Past Surgical History: Reports: Hx Abdominal Surgery, Hx Cardiac Catheterization, Hx Kidney (Renal Surgery) - removed (cancer) - Immunizations Hx Diphtheria, Pertussis, Tetanus Vaccination: Yes History of Influenza Vaccine for 11/2016 - 04/2017 Season: Yes Physical Exam - Vital signs Vitals: Temp Pulse Resp BP Pulse Ox 98.4 F 52 L 18 145/69 H 95 10/31/18 16:15 10/31/18 16:15 10/31/18 16:15 10/31/18 16:15 10/31/18 16:15 Course - Vital Signs Vital signs: Temp Pulse Resp BP Pulse Ox 98.4 F 52 L 18 145/69 H 95 10/31/18 16:15 10/31/18 16:15 10/31/18 16:15 10/31/18 16:15 10/31/18 16:15 Doctor's Discharge - Discharge Referrals: Lila PITTMAN MD [Primary Care Provider] - Follow up as needed
[2018-10-31 17:00] LABS: ABSOLUTE EOSINOPHILS # (AUTO) 0.2 10^3/uL (0.0-0.6); ABSOLUTE MONOCYTES (AUTO) 0.7 10^3/uL (0.1-1.4); ABSOLUTE NEUT (AUTO) 6.1 10^3/uL (1.7-8.2); BASOPHILS % (AUTO) 0.5 % (0-2); EOSINOPHILS % (AUTO) 2.2 % (0-6); HEMATOCRIT 33.1 % (37.9-51.0); HEMOGLOBIN 11.1 g/dL (13.5-17.0); MEAN CORPUSCULAR HEMOGLOBIN 27.3 pg (27.0-33.4); MEAN CORPUSCULAR HGB CONC 33.7 g/dL (32.0-36.0); MEAN CORPUSCULAR VOLUME 81 fl (80-97); MONOCYTES % (AUTO) 8.2 % (3-13); PLATELET COUNT 204 10^3/uL (150-450); RED BLOOD COUNT 4.08 10^6/uL (4.35-5.55); RED CELL DISTRIBUTION WIDTH 16.6 % (11.5-14.0); SEGMENTED NEUTROPHILS % (AUTO) 67.1 % (42-78); TOTAL CELLS COUNTED % (AUTO) 100 %; WHITE BLOOD COUNT 9.1 10^3/uL (4.0-10.5)
[2018-10-31 17:06] LABS: INTERNATIONAL RATION (INR) 1.26; PROTHROMBIN TIME 15.8 SEC (11.4-15.4)
--- NOTE | 2018-10-31 17:18 | RADIOLOGY REPORT (SQ) ---
EXAM DESCRIPTION: CHEST 2 VIEWS COMPLETED DATE/TIME: 10/31/2018 5:02 pm REASON FOR STUDY: Short of breath COMPARISON: 01/17/2017 EXAM PARAMETERS: NUMBER OF VIEWS: two views TECHNIQUE: Digital Frontal and Lateral radiographic views of the chest acquired. RADIATION DOSE: NA LIMITATIONS: none FINDINGS: LUNGS AND PLEURA: No opacities, masses or pneumothorax. No pleural effusion. MEDIASTINUM AND HILAR STRUCTURES: No masses or contour abnormalities. HEART AND VASCULAR STRUCTURES: Heart is enlarged. No failure. BONES: No acute findings. HARDWARE: None in the chest. OTHER: No other significant finding. IMPRESSION: Cardiomegaly unchanged. No acute findings in the chest. TECHNICAL DOCUMENTATION: JOB ID: [id number] [employer]- All Rights Reserved Reading location - IP/workstation name: [email or web address]
[2018-10-31 17:21] LABS: ALBUMIN 4.1 g/dL (3.5-5.0); ALKALINE PHOSPHATASE 55 U/L (38-126); ANION GAP 8 (5-19); ASPARTATE AMINO TRANSFERASE 41 U/L (17-59); BILIRUBIN,DIRECT 0.3 mg/dL (0.0-0.4); BLOOD UREA NITROGEN 23 mg/dL (7-20); CALCIUM 9.4 mg/dL (8.4-10.2); CARBON DIOXIDE 28 mmol/L (22-30); CHLORIDE 105 mmol/L (98-107); CREATINE KINASE 125 U/L (55-170); GLUCOSE 78 mg/dL (75-110); POTASSIUM 3.5 mmol/L (3.6-5.0); TOTAL PROTEIN 7.4 g/dL (6.3-8.2)
[2018-10-31 17:33] LABS: CREATINE KINASE MB 0.78 ng/mL (<4.55)
[2018-10-31 17:35] LABS: TROPONIN I < 0.012 ng/mL
[2018-10-31 17:39] LABS: APPEARANCE,URINE SLIGHTLY-CLOUDY; BILIRUBIN,URINE NEGATIVE (NEGATIVE); COLOR,URINE YELLOW; GLUCOSE, URINE NEGATIVE (NEGATIVE); KETONES,URINE NEGATIVE (NEGATIVE); LEUKOCYTE ESTERASE,URINE TRACE (NEGATIVE); NITRITE,URINE NEGATIVE (NEGATIVE); PROTEIN,URINE 100 mg/dL (NEGATIVE); URINE SPECIFIC GRAVITY 1.019
--- NOTE | 2018-10-31 17:43 | ER Document Report ---
ED General - General Chief Complaint: Shortness Of Breath Stated Complaint: SHORTNESS OF BREATH Time Seen by Provider: 10/31/18 16:27 Primary Care Provider: Lila PITTMAN MD [ACTIVE STAFF] - Follow up as needed Mode of Arrival: Ambulatory TRAVEL OUTSIDE OF THE [place] IN LAST 30 DAYS: No - HPI Notes: Patient is a 58-year-old male that presents to the emergency department for chief complaint of shortness of breath. Patient states for the last week he has felt increasing shortness of breath. He states it is worse when he is exerting himself and gets a little better with rest. He reports some mild orthopnea. He denies any cough, congestion, pal pitations, chest pain or peripheral edema. He denies history of heart failure but does state he has atrial fibrillation. He has been compliant with home medications and denies feeling like his heart was beating fast. Patient denies history of COPD or tobacco use. Past Medical History: Atrial fibrillation, hypertension Past Surgical History: Reviewed in chart Social History: Denies drug alcohol and tobacco use Family History: Reviewed and noncontributory for presenting illness Allergies: Reviewed, see documented allergy list. REVIEW OF SYSTEMS: CONSTITUTIONAL : No fever No chills No diaphoresis No recent illness EENT: No vision changes No congestion No sore throat CARDIOVASCULAR: No chest pain No palpitations RESPIRATORY: shortness of breath No cough No difficulty breathing GASTROINTESTINAL: No abdominal pain No nausea No vomiting No diarrhea GENITOURINARY: No dysuria No hematuria No difficulty urinating MUSCULOSKELETAL: No back pain No leg pain No arm pain SKIN: No rashes No lesions LYMPHATIC: No swollen, enlarged glands. NEUROLOGICAL: No lightheadedness No headache No weakness No paresthesias PSYCHIATRIC: No anxiety No depression PHYSICAL EXAMINATION: Vital signs reviewed, nursing noted reviewed. GENERAL: Well-appearing, well-nourished and in no acute distress. HEAD: Atraumatic, normocephalic. EYES: Eyes appear normal, extraocular movements intact, sclera anicteric, conjunctiva are normal. ENT: nares patent, oropharynx clear without exudates. Moist mucous membranes. NECK: Normal range of motion, supple without lymphadenopathy LUNGS: Breath sounds mildly diminished to auscultation bilaterally and equal. No wheezes rales or rhonchi. No tachypnea or accessory muscle use. Patient no respiratory distress. Speaking in full sentences. HEART: Regular rate and rhythm without murmurs ABDOMEN: Soft, nontender, normoactive bowel sounds. No rebound, guarding, or rigidity. No masses appreciated. EXTREMITIES: Nontender, good range of motion, trace nonpitting pretibial edema symmetric bilaterally. NEUROLOGICAL: No focal neurological deficits. Moves all extremities spontaneously Motor and sensory grossly intact on exam. PSYCH: Normal mood, normal affect. SKIN: Warm, Dry, normal turgor, no rashes or lesions noted on exposed skin - Related Data Allergies/Adverse Reactions: No Known Allergies Allergy (Verified 10/31/18 16:11) Past Medical History - General Information source: Patient - Social History Smoking Status: Never Smoker Family History: CAD Patient has suicidal ideation: No Patient has homicidal ideation: No - Past Medical History Cardiac Medical History: Reports: Hx Atrial Fibrillation - Sounds like patient had ablation therapy 2 years ago, Hx Coronary Artery Disease, Hx Hypercholesterolemia, Hx Hypertension Pulmonary Medical History: Neurological Medical History: Endocrine Medical History: Reports: Hx Diabetes Mellitus Type 2 Renal/ Medical History: Reports: Hx Benign Prostatic Hyperplasia. Denies: Hx Peritoneal Dialysis Malignancy Medical History: Reports Hx Renal (Kidney) Cancer - Surgery removing most of 1 of his kidneys. GI Medical History: Musculoskeletal Medical History: Psychiatric Medical History: Infectious Medical History: Past Surgical History: Reports: Hx Abdominal Surgery, Hx Cardiac Catheterization, Hx Kidney (Renal Surgery) - removed (cancer) - Immunizations Hx Diphtheria, Pertussis, Tetanus Vaccination: Yes Hx Pneumococcal Vaccination: 12/26/10 Physical Exam - Vital signs Vitals: Temp Pulse Resp BP Pulse Ox 98.4 F 52 L 18 145/69 H 95 10/31/18 16:15 10/31/18 16:15 10/31/18 16:15 10/31/18 16:15 10/31/18 16:15 Course - Re-evaluation Re-evalutation: 10/31/18 17:40 Vitals reviewed. Nursing notes reviewed. Patient is oxygenating well on room air and in no acute respiratory distress. Lung sounds are mildly diminished but symmetric bilaterally without wheezing. His x-ray shows cardiomegaly without pulmonary vascular congestion, pneumonia or pneumothorax. Patient does have trace pretibial edema. Clinically I am suspicious he may be early onset heart failure. He also has renal insufficiency on lab work which is chronic and unchanged for this patient. He has not had any associated chest pain to suggest underlying ACS. His atrial fibrillation is rate controlled. Patient likely requiring further work-up by his gift manager for new onset heart failure but is stable at this time for discharge and outpatient management. Patient counseled on returning for increased shortness of breath, chest pain, edema or new concerning symptoms. He was discharged home in stable condition. Laboratory 10/31/18 10/31/18 10/31/18 16:43 16:43 16:43 WBC 9.1 RBC 4.08 L Hgb 11.1 L Hct 33.1 L MCV 81 MCH 27.3 MCHC 33.7 RDW 16.6 H Plt Count 204 Lymph % (Auto) 22.0 [place] % (Auto) 8.2 Eos % (Auto) 2.2 Baso % (Auto) 0.5 Absolute Neuts (auto) 6.1 Absolute Lymphs (auto) 2.0 Absolute Monos (auto) 0.7 Absolute Eos (auto) 0.2 Absolute Basos (auto) 0.0 Seg Neutrophils % 67.1 PT 15.8 H INR 1.26 APTT 37.0 H Sodium 141.4 Potassium 3.5 L Chloride 105 Carbon Dioxide 28 Anion Gap 8 BUN 23 H Creatinine 1.63 H Est GFR ( Amer) 53 L Est GFR (MDRD) Non-Af 44 L Glucose 78 Calcium 9.4 Total Bilirubin 1.0 Direct Bilirubin 0.3 Neonat Total Bilirubin Not Reportable Neonat Direct Bilirubin Not Reportable Neonat Indirect Bili Not Reportable AST 41 ALT 49 Alkaline Phosphatase 55 Creatine Kinase 125 CK-MB (CK-2) Troponin I Total Protein 7.4 Albumin 4.1 10/31/18 16:43 WBC RBC Hgb Hct MCV MCH MCHC RDW Plt Count Lymph % (Auto) [place] % (Auto) Eos % (Auto) Baso % (Auto) Absolute Neuts (auto) Absolute Lymphs (auto) Absolute Monos (auto) Absolute Eos (auto) Absolute Basos (auto) Seg Neutrophils % PT INR APTT Sodium Potassium Chloride Carbon Dioxide Anion Gap BUN Creatinine Est GFR ( Amer) Est GFR (MDRD) Non-Af Glucose Calcium Total Bilirubin Direct Bilirubin Neonat Total Bilirubin Neonat Direct Bilirubin Neonat Indirect Bili AST ALT Alkaline Phosphatase Creatine Kinase CK-MB (CK-2) 0.78 Troponin I < 0.012 Total Protein Albumin Chest X-Ray 10/31/18 16:27 IMPRESSION: Cardiomegaly unchanged. No acute findings in the chest. - Vital Signs Vital signs: Temp Pulse Resp BP Pulse Ox 98.4 F 52 L 18 145/69 H 95 10/31/18 16:15 10/31/18 16:15 10/31/18 16:15 10/31/18 16:15 10/31/18 16:15 - Laboratory Result Diagrams: 10/31/18 16:43 10/31/18 16:43 Laboratory results interpreted by me: 10/31/18 10/31/18 10/31/18 15:10 16:43 16:43 RBC 4.08 L Hgb 11.1 L Hct 33.1 L RDW 16.6 H PT 15.8 H APTT 37.0 H Potassium BUN Creatinine Est GFR ( Amer) Est GFR (MDRD) Non-Af Urine Protein 100 H Urine Urobilinogen 2.0 H Ur Leukocyte Esterase TRACE H Urine Ascorbic Acid 20 H 10/31/18 16:43 RBC Hgb Hct RDW PT APTT Potassium 3.5 L BUN 23 H Creatinine 1.63 H Est GFR ( Amer) 53 L Est GFR (MDRD) Non-Af 44 L Urine Protein Urine Urobilinogen Ur Leukocyte Esterase Urine Ascorbic Acid Discharge - Discharge Clinical Impression: Shortness of breath on exertion Condition: Stable Disposition: HOME, SELF-CARE Instructions: Dyspnea, Nonspecific ([facility]) Additional Instructions: Please return to the emergency department if you have any worsening, or concern of your symptoms. Please return to the emergency department if you develop chest pain, difficulty breathing, severe abdominal pain, or ongoing vomiting. Please follow-up with your primary care physician in 2-3 days and any other recommended physicians. If prescribed, take all medications as directed. If you have any questions or concerns do not hesitate to return the emergency department for evaluation. Contact your gift manager to have an cardiac echo performed to evaluate for congestive heart failure. Avoid eating foods high in sodium Referrals: Lila PITTMAN MD [ACTIVE STAFF] - Follow up as needed
[2018-10-31 18:32] VITALS: BP 155/73
--- NOTE | 2018-10-31 23:28 | EKG REPORT ---
SEVERITY:- ABNORMAL ECG - SINUS BRADYCARDIA NONSPECIFIC T ABNORMALITIES, LATERAL LEADS : Confirmed by: Thalia Rose 31-Oct-2018 23:28:01
== END 2018-10-31 18:31 | disposition home or self-care (01) ==
LOC: ER 16:10
DX: R06.02 Shortness of breath (principal); I48.91 Unspecified atrial fibrillation; I25.10 Atherosclerotic heart disease of native coronary artery without angina pectoris; I10 Essential (primary) hypertension; E11.9 Type 2 diabetes mellitus without complications
CPT/HCPCS: 36415; 71046; 80053; 81001; 82550; 82553; 84484; 85025; 85610; 85730; 93005; 93010; 99285

== ENCOUNTER → 2019-03-07 | Outpatient (CLI) | payer OTHER, MEDICARE ==
[2019-03-07 12:39] LABS: APPEARANCE,URINE CLEAR; BILIRUBIN,URINE NEGATIVE (NEGATIVE); COLOR,URINE YELLOW; GLUCOSE, URINE NEGATIVE (NEGATIVE); KETONES,URINE NEGATIVE (NEGATIVE); LEUKOCYTE ESTERASE,URINE NEGATIVE (NEGATIVE); NITRITE,URINE NEGATIVE (NEGATIVE); PROTEIN,URINE 100 mg/dL (NEGATIVE); URINE SPECIFIC GRAVITY 1.016
[2019-03-07 12:48] LABS: ABSOLUTE EOSINOPHILS # (AUTO) 0.1 10^3/uL (0.0-0.6); ABSOLUTE LYMPHOCYTES (AUTO) 1.2 10^3/uL (0.5-4.7); ABSOLUTE MONOCYTES (AUTO) 0.6 10^3/uL (0.1-1.4); ABSOLUTE NEUT (AUTO) 5.4 10^3/uL (1.7-8.2); BASOPHILS % (AUTO) 0.5 % (0-2); EOSINOPHILS % (AUTO) 1.8 % (0-6); HEMATOCRIT 32.5 % (37.9-51.0); LYMPHOCYTES % (AUTO) 16.3 % (13-45); MEAN CORPUSCULAR HEMOGLOBIN 27.1 pg (27.0-33.4); MEAN CORPUSCULAR HGB CONC 33.7 g/dL (32.0-36.0); MEAN CORPUSCULAR VOLUME 80 fl (80-97); MONOCYTES % (AUTO) 8.1 % (3-13); PLATELET COUNT 172 10^3/uL (150-450); RED BLOOD COUNT 4.05 10^6/uL (4.35-5.55); RED CELL DISTRIBUTION WIDTH 17.1 % (11.5-14.0); SEGMENTED NEUTROPHILS % (AUTO) 73.3 % (42-78); TOTAL CELLS COUNTED % (AUTO) 100 %; WHITE BLOOD COUNT 7.4 10^3/uL (4.0-10.5)
[2019-03-07 12:56] LABS: ANION GAP 10 (5-19); BLOOD UREA NITROGEN 22 mg/dL (7-20); CALCIUM 8.9 mg/dL (8.4-10.2); CARBON DIOXIDE 29 mmol/L (22-30); CHLORIDE 103 mmol/L (98-107); GLUCOSE 197 mg/dL (75-110); PHOSPHORUS 3.6 mg/dL (2.5-4.5); POTASSIUM 3.7 mmol/L (3.6-5.0)
[2019-03-07 13:10] LABS: ANISOCYTOSIS 1+; PLATELET COMMENT ADEQUATE; TARGET CELLS SLIGHT
== END ==
LOC: OD 11:51
PROVIDERS: ATTEND Internal Medicine Nephrology
DX: I12.9 Hypertensive chronic kidney disease with stage 1 through stage 4 chronic kidney disease, or unspecified chronic kidney disease (principal); N18.3 Chronic kidney disease, stage 3 (moderate); E11.22 Type 2 diabetes mellitus with diabetic chronic kidney disease; D63.1 Anemia in chronic kidney disease
CPT/HCPCS: 36415; 80048; 81001; 83735; 83970; 84100; 85025

== ENCOUNTER → 2019-04-19 | Outpatient (CLI) | payer OTHER, MEDICARE ==
[2019-04-19 11:49] LABS: APPEARANCE,URINE SLIGHTLY-CLOUDY; BILIRUBIN,URINE NEGATIVE (NEGATIVE); COLOR,URINE YELLOW; GLUCOSE, URINE NEGATIVE (NEGATIVE); KETONES,URINE NEGATIVE (NEGATIVE); LEUKOCYTE ESTERASE,URINE TRACE (NEGATIVE); NITRITE,URINE NEGATIVE (NEGATIVE); PROTEIN,URINE 100 mg/dL (NEGATIVE); URINE SPECIFIC GRAVITY 1.023
[2019-04-19 11:51] LABS: ABSOLUTE EOSINOPHILS # (AUTO) 0.1 10^3/uL (0.0-0.6); TOTAL CELLS COUNTED % (AUTO) 100 %
[2019-04-19 11:57] LABS: ABSOLUTE LYMPHOCYTES (AUTO) 1.6 10^3/uL (0.5-4.7); ABSOLUTE MONOCYTES (AUTO) 0.5 10^3/uL (0.1-1.4); ABSOLUTE NEUT (AUTO) 5.4 10^3/uL (1.7-8.2); BASOPHILS % (AUTO) 0.3 % (0-2); EOSINOPHILS % (AUTO) 1.7 % (0-6); HEMATOCRIT 35.6 % (37.9-51.0); HEMOGLOBIN 12.2 g/dL (13.5-17.0); LYMPHOCYTES % (AUTO) 21.1 % (13-45); MEAN CORPUSCULAR HEMOGLOBIN 27.5 pg (27.0-33.4); MEAN CORPUSCULAR HGB CONC 34.2 g/dL (32.0-36.0); MEAN CORPUSCULAR VOLUME 80 fl (80-97); MONOCYTES % (AUTO) 6.3 % (3-13); PLATELET COUNT 178 10^3/uL (150-450); RED BLOOD COUNT 4.43 10^6/uL (4.35-5.55); RED CELL DISTRIBUTION WIDTH 16.2 % (11.5-14.0); SEGMENTED NEUTROPHILS % (AUTO) 70.6 % (42-78); WHITE BLOOD COUNT 7.6 10^3/uL (4.0-10.5)
[2019-04-19 12:03] LABS: ANION GAP 8 (5-19); BLOOD UREA NITROGEN 27 mg/dL (7-20); CARBON DIOXIDE 31 mmol/L (22-30); CHLORIDE 104 mmol/L (98-107); GLUCOSE 156 mg/dL (75-110); POTASSIUM 3.7 mmol/L (3.6-5.0)
[2019-04-19 12:09] LABS: UR PRO/CREAT RATIO RESULT 0.6 mg/mg (0.0-0.2); URINE CREATININE 320.9 mg/dL (22-328); URINE PROTEIN 192.7 mg/dL (<12)
== END ==
LOC: OD 11:11
PROVIDERS: ATTEND Internal Medicine Nephrology
DX: E11.22 Type 2 diabetes mellitus with diabetic chronic kidney disease (principal); I12.9 Hypertensive chronic kidney disease with stage 1 through stage 4 chronic kidney disease, or unspecified chronic kidney disease; N18.3 Chronic kidney disease, stage 3 (moderate); D64.9 Anemia, unspecified; N25.0 Renal osteodystrophy; R80.9 Proteinuria, unspecified
CPT/HCPCS: 36415; 80048; 81001; 82570; 83970; 84100; 84156; 85025